=== PATIENT | male | born 1940 | race Caucasian/White ===

== ENCOUNTER 2016-12-25 08:37 | Inpatient (IN) | payer MEDICARE, BC ==
--- NOTE | 2016-12-25 08:40 | EDM.PDOC ---
ED HPI GENERAL MEDICAL PROBLEM - General Chief Complaint: Respiratory Problem Stated Complaint: WEAK Time Seen by Provider: 12/25/16 08:40 Source of Information: Reports: Patient, Family, Old Records, RN, RN Notes Reviewed - History of Present Illness INITIAL COMMENTS - FREE TEXT/NARRATIVE: Arrives from home by POV with c/o progressively worsening weakness for several with a deep moist non-productive cough for the past 3 days. Denies fever or chills, chest pain, abdominal pain, N/V/D/C, edema, or palpitations. Admits to decreased appetite, generalized weakness, and fatigue. Onset: Unknown/Unsure Duration: Week(s): (approx. 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(s) - Related Data Allergies Allergy/AdvReac Type Severity Reaction Status Date / Time No Known Allergies Allergy Verified 06/06/15 19:14 Home Meds: Home Meds Acetaminophen/oxyCODONE [Percocet 325-5 MG] 1 tab PO Q6HR PRN 06/06/15 [History] Albuterol Sulfate [Proventil Hfa] 2 puff INH Q6HR PRN 06/06/15 [History] Cimetidine [Tagamet] 400 mg PO BID PRN 06/06/15 [History] Meclizine [Antivert] 12.5 mg PO TID PRN 06/06/15 [History] Simvastatin [Zocor] 40 mg PO BEDTIME 06/06/15 [History] cloNIDine HCl [Catapres] 0.1 mg PO BID 06/06/15 [History] Carvedilol [Coreg] 25 mg PO BID #30 tablet 11/16/15 [Rx] Aspirin [Halfprin] 81 mg PO BRK 01/30/16 [History] Docusate Sodium/Sennosides [Senna Plus] 1 tab PO BEDTIME 01/30/16 [History] Isosorbide Mononitrate [Imdur] 60 mg PO DAILY 01/30/16 [History] Past Medical History HEENT History: Reports: Hard of Hearing Other HEENT History: occasional increase in [place] Cardiovascular History: Reports: Angina, CAD, High Cholesterol, Hypertension, [place] , PVD, SOB on Exertion Respiratory History: Reports: COPD, SOB Gastrointestinal History: Reports: Other (See Below) Other Gastrointestinal History: abdominal hernia Genitourinary History: Reports: BPH, Renal Disease Other Genitourinary History: chronic kidney disease, Stage III. Renal insufficiency Musculoskeletal History: Reports: Back Pain, Chronic, Other (See Below) Other Musculoskeletal History: DJD Neurological History: Reports: Other (See Below) Other Neuro History: dementia. Through review of Dr. 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 Psychiatric History: Reports: Anxiety, Dementia - Infectious Disease History Infectious Disease History: Reports: Measles - Past Surgical History HEENT Surgical History: Reports: Adenoidectomy, Cataract Surgery, Tonsillectomy Cardiovascular Surgical History: Reports: AAA Repair, Carotid Endarterectomy GI Surgical History: Reports: Appendectomy, Colonoscopy, Hernia, Abdominal Neurological Surgical History: Reports: Vertebroplasty, Other (See Below) Social & Family History - Family History Neurological: Reports: CVA Oncologic: Reports: Colon - Tobacco Use Smoking Status *Q: Former Smoker Years of Tobacco use: 57 Packs/Tins Daily: 0.5 Used Tobacco, but Quit: No Month Tobacco Last Used: may Second Hand Smoke Exposure: No - Recreational Drug Use Recreational Drug Use: No - Living Situation & Occupation Living situation: Reports: with Spouse Occupation: Retired ED ROS GENERAL - Review of Systems Review Of Systems: ROS reveals no pertinent complaints other than HPI. ED EXAM, GENERAL - Physical Exam Exam: See Below Exam Limited By: No Limitations General Appearance: Alert, WD/WN, No Apparent Distress Eye Exam: Bilateral Eye: Normal Inspection Ears: Hearing Grossly Normal Nose: Normal Inspection, Normal Mucosa, No Blood Throat/Mouth: Normal Lips, Normal Oropharynx, Normal Voice, No Airway Compromise , Other (pink moist oral membranes) Head: Atraumatic, Normocephalic Neck: Normal Inspection, Supple, Non-Tender, Full Range of Motion Respiratory/Chest: No Respiratory Distress, No Accessory Muscle Use, Decreased Breath Sounds, Crackles, Rales, Wheezing (mild scattered upper B/L lung field wheezes) Cardiovascular: Normal Peripheral Pulses, Regular Rate, Rhythm, No Edema, No Gallop, No JVD, No Murmur, No Rub GI/Abdominal: Normal Bowel Sounds, Soft, Non-Tender, No Distention, No Abnormal Bruit (Male) Exam: Deferred Rectal (Males) Exam: Deferred Back Exam: Normal Inspection, Full Range of Motion. No: CVA Tenderness (L), CVA Tenderness (R) Extremities: Normal Inspection, Normal Range of Motion, Non-Tender, Normal Capillary Refill, No Pedal Edema Neurological: Alert, Oriented, CN II-XII Intact, Normal Cognition, Normal Gait, No Motor/Sensory Deficits Psychiatric: Normal Affect, Normal Mood Skin Exam: Warm, Dry, Intact, Normal Color, No Rash EKG INTERPRETATION EKG Date: 12/25/16 Time: 09:19 Rhythm: Other (SR) Rate (Beats/Min): 60 [place]: Normal P-Wave: Present QRS: Normal (with multiform PVCs) ST-T: Normal QT: Normal Comparison: No Change (Compared to EKG 01/30/16 unchanged other than PVCs) EKG Interpretation Comments: No acute ischemic changes. Course - Vital Signs Last Recorded V/S: Last Vital Signs Temp 36.4 C 12/25/16 08:53 Pulse 63 12/25/16 09:34 Resp 16 12/25/16 08:53 BP 150/73 H 12/25/16 08:53 Pulse Ox 96 12/25/16 08:53 - Orders/Labs/Meds Orders: Active Orders 24 hr Category Date Time Status EKG 12 Lead [EKG Documentation Completion] [RC] STAT Care 12/25/16 08:57 Active Peripheral IV Care [RC] . DIRECTED Care 12/25/16 08:59 Active RT Aerosol Therapy [RC] ASDIRECTED Care 12/25/16 08:59 Active CULTURE BLOOD [BC] Stat Lab 12/25/16 09:16 Received CULTURE BLOOD [BC] Stat Lab 12/25/16 09:43 Received Piperacillin/Tazobactam [Zosyn] 3.375 gm Med 12/25/16 11:58 Active Sodium Chloride 0.9% [Normal Saline] 100 ml IV ONETIME Sodium Chloride 0.9% [Saline Flush] Med 12/25/16 08:58 Active 10 ml FLUSH ASDIRECTED PRN Blood Culture x2 Reflex Set [OM.PC] Stat Oth 12/25/16 08:58 Ordered Peripheral IV Insertion Adult [OM.PC] Stat Oth 12/25/16 08:57 Ordered Medication Orders Piperacillin Sod/Tazobactam (Sod 3.375 gm/ Sodium Chloride) 100 mls @ 200 mls/ hr IV ONETIME ONE Stop: 12/25/16 12:27 Sodium Chloride (Saline Flush) 10 ml FLUSH ASDIRECTED PRN PRN Reason: Keep Vein Open Labs: Laboratory Tests 12/25/16 12/25/16 12/25/16 Range/Units 09:02 09:16 09:16 WBC 15.1 H (5.0-10.0) 10^3/uL RBC 4.52 L (4.6-6.2) 10^6/uL Hgb 12.7 L (14.0-18.0) g/dL Hct 40.5 (40.0-54.0) % MCV 89.6 (80-100) fL MCH 28.1 (27.0-34.0) pg MCHC 31.4 L (33.0-35.0) g/dL Plt Count 123 L (150-450) 10^3/uL Neut % (Auto) 78.6 H (42.2-75.2) % Lymph % (Auto) 10.7 L (20.5-50.1) % [place] % (Auto) 9.1 H (2-8) % Eos % (Auto) 1.5 (1.0-3.0) % Baso % (Auto) 0.1 (0.0-1.0) % Sodium 140 (135-145) mmol/L Potassium 3.6 (3.6-5.0) mmol/L Chloride 111 (101-111) mmol/L Carbon Dioxide 18.0 L (21.0-31.0) mmol/L Anion Gap 14.6 BUN 26 H (7-18) mg/dL Creatinine 1.7 H (0.6-1.3) mg/dL Est Cr Clr Drug Dosing 37.57 mL/min Estimated GFR (MDRD) 39 BUN/Creatinine Ratio 15.29 Glucose 111 H (74-105) mg/dL Lactic Acid (0.5-2.2) mmol/L Calcium 9.8 (8.4-10.2) mg/dl Total Bilirubin 0.6 (0.2-1.0) mg/dL AST 14 (10-42) IU/L ALT 8 L (10-60) IU/L Alkaline Phosphatase 56 (42-121) IU/L Troponin I 0.02 (0.00-0.02) ng/ml B-Natriuretic Peptide 329 H (0-100) pg/ml Total Protein 7.7 (6.7-8.2) g/dl Albumin 4.0 (3.2-5.5) g/dl Globulin 3.7 Albumin/Globulin Ratio 1.08 TSH, Ultra Sensitive (0.35-7.0) uIu/mL Urine Color Dark yellow (YELLOW) Urine Appearance Cloudy (CLEAR) Urine pH 5.0 (5.0-9.0) Ur Specific [place] 1.025 (1.005-1.030) Urine Protein 30 H (NEGATIVE) Urine Glucose (UA) Negative (NEGATIVE) Urine Ketones Negative (NEGATIVE) Urine Occult Blood Trace-lysed H (NEGATIVE) Urine Nitrite Negative (NEGATIVE) Urine Bilirubin Negative (NEGATIVE) Urine Urobilinogen 0.2 (0.2-1.0) mg/dL Ur Leukocyte Esterase Negative (NEGATIVE) Urine RBC 10-20 H /HPF Urine WBC 0-5 (0-5/HPF) /HPF Ur Epithelial Cells Rare /HPF Amorphous Sediment Few (0/HPF) /HPF Hyaline Casts Few H /LPF Urine Mucus Few H /LPF Urine Other See note 12/25/16 12/25/16 Range/Units 09:16 09:16 WBC (5.0-10.0) 10^3/uL RBC (4.6-6.2) 10^6/uL Hgb (14.0-18.0) g/dL Hct (40.0-54.0) % MCV (80-100) fL MCH (27.0-34.0) pg MCHC (33.0-35.0) g/dL Plt Count (150-450) 10^3/uL Neut % (Auto) (42.2-75.2) % Lymph % (Auto) (20.5-50.1) % [place] % (Auto) (2-8) % Eos % (Auto) (1.0-3.0) % Baso % (Auto) (0.0-1.0) % Sodium (135-145) mmol/L Potassium (3.6-5.0) mmol/L Chloride (101-111) mmol/L Carbon Dioxide (21.0-31.0) mmol/L Anion Gap BUN (7-18) mg/dL Creatinine (0.6-1.3) mg/dL Est Cr Clr Drug Dosing mL/min Estimated GFR (MDRD) BUN/Creatinine Ratio Glucose (74-105) mg/dL Lactic Acid 1.0 (0.5-2.2) mmol/L Calcium (8.4-10.2) mg/dl Total Bilirubin (0.2-1.0) mg/dL AST (10-42) IU/L ALT (10-60) IU/L Alkaline Phosphatase (42-121) IU/L Troponin I (0.00-0.02) ng/ml B-Natriuretic Peptide (0-100) pg/ml Total Protein (6.7-8.2) g/dl Albumin (3.2-5.5) g/dl Globulin Albumin/Globulin Ratio TSH, Ultra Sensitive 1.81 (0.35-7.0) uIu/mL Urine Color (YELLOW) Urine Appearance (CLEAR) Urine pH (5.0-9.0) Ur Specific [place] (1.005-1.030) Urine Protein (NEGATIVE) Urine Glucose (UA) (NEGATIVE) Urine Ketones (NEGATIVE) Urine Occult Blood (NEGATIVE) Urine Nitrite (NEGATIVE) Urine Bilirubin (NEGATIVE) Urine Urobilinogen (0.2-1.0) mg/dL Ur Leukocyte Esterase (NEGATIVE) Urine RBC /HPF Urine WBC (0-5/HPF) /HPF Ur Epithelial Cells /HPF Amorphous Sediment (0/HPF) /HPF Hyaline Casts /LPF Urine Mucus /LPF Urine Other Meds: Medications Generic Name Dose Route Start Last Admin Trade Name Freq PRN Reason Stop Dose Admin Piperacillin Sod/Tazobactam 100 mls @ 200 mls/hr 12/25/16 11:58 Sod 3.375 gm/ Sodium Chloride IV 12/25/16 12:27 ONETIME ONE Sodium Chloride 10 ml 12/25/16 08:58 Saline Flush FLUSH ASDIRECTED PRN Keep Vein Open Discontinued Medications Generic Name Dose Route Start Last Admin Trade Name Freq PRN Reason Stop Dose Admin Albuterol/Ipratropium 3 ml 12/25/16 08:59 12/25/16 09:33 Duoneb 3.0-0.5 Mg/3 Ml NEB 12/25/16 09:00 3 ml ONETIME ONE Administration - Radiology Interpretation Free Text/Narrative:: CXR: No new abnormality since 01/30/16 CXR, abnormal charlene; see Rad. report. CT chest: RLL infiltrate, see Rad. report. - Re-Assessments/Exams Free Text/Narrative Re-Assessment/Exam: 12/25/16 11:44 Pt with progressively worsening weakness of 3+ weeks duration with new onset cough and WBC >15,000 with 57 pack year history of smoking. Departure - Departure Time of Disposition: 12:11 (admit to Dr. Hayward) Disposition: Admitted As Inpatient 65 Condition: Serious Clinical Impression: Generalized weakness Pneumonia Qualifiers: Pneumonia type: due to unspecified organism Laterality: right Lung location: lower lobe of lung Qualified Code(s): J18.1 - Lobar pneumonia, unspecified organism - Discharge Information Forms: ED Department Discharge - My Orders Last 24 Hours: My Active Orders 12/25/16 08:57 EKG 12 Lead [EKG Documentation Completion] [RC] STAT Peripheral IV Insertion Adult [OM.PC] Stat 12/25/16 08:58 Sodium Chloride 0.9% [Saline Flush] 10 ml FLUSH ASDIRECTED PRN Blood Culture x2 Reflex Set [OM.PC] Stat 12/25/16 08:59 Peripheral IV Care [RC] . DIRECTED RT Aerosol Therapy [RC] ASDIRECTED 12/25/16 09:16 CULTURE BLOOD [BC] Stat 12/25/16 09:43 CULTURE BLOOD [BC] Stat 12/25/16 11:58 Piperacillin/Tazobactam [Zosyn] 3.375 gm Sodium Chloride 0.9% [Normal Saline] 100 ml IV ONETIME - Assessment/Plan Last 24 Hours: My Active Orders 12/25/16 08:57 EKG 12 Lead [EKG Documentation Completion] [RC] STAT Peripheral IV Insertion Adult [OM.PC] Stat 12/25/16 08:58 Sodium Chloride 0.9% [Saline Flush] 10 ml FLUSH ASDIRECTED PRN Blood Culture x2 Reflex Set [OM.PC] Stat 12/25/16 08:59 Peripheral IV Care [RC] . DIRECTED RT Aerosol Therapy [RC] ASDIRECTED 12/25/16 09:16 CULTURE BLOOD [BC] Stat 12/25/16 09:43 CULTURE BLOOD [BC] Stat 12/25/16 11:58 Piperacillin/Tazobactam [Zosyn] 3.375 gm Sodium Chloride 0.9% [Normal Saline] 100 ml IV ONETIME
[2016-12-25] MEDS ORDERED: Albuterol/Ipratropium 3.0-0.5 MG/3 ML Neb Soln NEB ONE (08:59)
--- NOTE | 2016-12-25 09:27 | CR ---
Clinical history: 76-year-old male emergency department with a "cough". Interpretation: (Extreme costophrenic sulci "cut off" lower margin of the film) Normal cardiac silhouette without cephalization of flow and new signs of alveolar edema or appreciab le pleural fluid accumulation since 30 January 2016 exam this patient with sternotomy wires and med iastinal clips. Symmetric prominence of the pulmonary artery segments but no lung mass, hilar lymphadenopathy or foc al lobar pneumonia. No atelectasis/collapse. No pneumothorax. CONCLUSION: No acute new cardiopulmonary abnormality since 30 January 2016 exam. (Prominent charlene pr esumably reflecting pulmonary artery segments but differential includes underlying lymphadenopathy p articularly on the right.) Clinical?
--- NOTE | 2016-12-25 11:53 | CT ---
Clinical history: 76-year-old debilitated hypertensive male ex-smoker (quit in 2001) now with a coug h and weakness. Scan technique: Volume acquisition of data emergency unenhanced CT scan of the chest (bony thorax, l ungs and mediastinum) obtained with patient lying supine on the Siemens multi slice CT scanner [place], [place]. All data archived in the PACS system for storage, reformatting and study. Interpretation: 1. Sternotomy wires and mediastinal clips and calcifications normal caliber thoracic aorta. 2. Borderline cardiomegaly but no current cephalization of vascular flow, signs of alveolar edema or pleural effusion. Asymmetrically prominent pulmonary artery segments proximally (right greater gideon n left) 3. Old trauma (callus) and/or bony exostosis arising off the inner margin lateral left sixth rib. No sign of underlying lung contusion, atelectasis, or pleural hematoma, effusion, or pneumothorax left hemithorax. 4. Bilateral peribronchial "cuffing" and subtle pneumonic like infiltrate posterior segment right lo wer lobe. Aspiration? 5. No sign of parenchymal lung nodule or mass lesion. Shotty nodes (no significant hilar or mediasti nal lymphadenopathy). 6. Gallbladder, liver, stomach, spleen, pancreas and adrenal glands unremarkable. 7. Osteopenia and osteoarthritic changes (spurs) spine. CONCLUSION: Bronchitis and patchy right lower lobe pneumonitis (bronchiectasis?). No significant lym phadenopathy.
[2016-12-25] MEDS ORDERED: Piperacillin/Tazobactam 3.375 GM in Sodium Chloride 0.9% 100 ML IV ONE (11:58)
[2016-12-25] MEDS: Sodium Chloride 0.9% 10 ML Syringe FLUSH PRN (12:33)
[2016-12-25] MEDS ORDERED: Magnesium Hydroxide 400 MG/5 ML Susp 30 ML Cup PO PRN (13:47)
[2016-12-25] MEDS ORDERED: Ondansetron 4 MG Tab.DIS PO PRN (13:47)
[2016-12-25] MEDS ORDERED: Polyethylene Glycol 3350 Powder 17 GM Packet PO PRN (13:47)
[2016-12-25] MEDS ORDERED: Docusate Sodium 100 MG Cap PO PRN (13:47)
[2016-12-25] MEDS ORDERED: Zolpidem 5 MG Tab PO PRN (13:47)
[2016-12-25] MEDS ORDERED: Sodium Chloride 0.9% 10 ML Syringe FLUSH PRN (13:47)
[2016-12-25] MEDS ORDERED: Albuterol 6.7 GM Inhaler INH PRN (13:50)
[2016-12-25] MEDS ORDERED: Meclizine 12.5 MG Tab PO PRN (13:50)
[2016-12-25] MEDS: Azithromycin 500 MG in Sodium Chloride 0.9% 250 ML IV SCH (14:04)
[2016-12-25] MEDS: Nicotine 14 MG/24 Hr Patch TRDERM SCH (14:05)
[2016-12-25] MEDS: Aspirin 81 MG Tab.EC PO SCH (14:09)
--- NOTE | 2016-12-25 14:10 | PCM.HP ---
H&P History of Present Illness - General Date of Service: 12/25/16 Admit Problem/Dx: Admission Diagnosis/Problem Admission Diagnosis/Problem Pneumonia Source of Information: Patient, Family - History of Present Illness Initial Comments - Free Text/Narative: the patient is a 76-year-old gentleman with a history of extensive smoking, chewing tobacco. The patient has a history of COPD, coronary artery disease, CKD stage III, hypertension. The patient has had back surgeries for lumbar stenosis. He has been living with the son. He has been seen in the past few weeks to have increasing weakness, more difficulty with ambulation. In the past 34 days he has developed a cough, no associated sputum production, no shortness of breath or fever. No chest pain. The patient came into the emergency room and was noted to have leukocytosis. CT of the chest confirmed pneumonia. - Related Data Allergies/Adverse Reactions: Allergies Allergy/AdvReac Type Severity Reaction Status Date / Time No Known Allergies Allergy Verified 12/25/16 12:54 Home Medications: Home Meds Acetaminophen/oxyCODONE [Percocet 325-5 MG] 1 tab PO Q6HR PRN 06/06/15 [History] Albuterol Sulfate [Proventil Hfa] 2 puff INH Q6HR PRN 06/06/15 [History] Cimetidine [Tagamet] 400 mg PO BID 06/06/15 [History] Meclizine [Antivert] 12.5 mg PO TID PRN 06/06/15 [History] Simvastatin [Zocor] 40 mg PO BEDTIME 06/06/15 [History] cloNIDine HCl [Catapres] 0.1 mg PO BID 06/06/15 [History] Carvedilol [Coreg] 25 mg PO BID #30 tablet 11/16/15 [Rx] Aspirin [Halfprin] 81 mg PO BRK 01/30/16 [History] Docusate Sodium/Sennosides [Senna Plus] 1 tab PO BEDTIME 01/30/16 [History] Isosorbide Mononitrate [Imdur] 120 mg PO DAILY 01/30/16 [History] Acetaminophen [Tylenol] 2 tab PO QID PRN 12/25/16 [History] Dorzolamide HCl/Timolol Maleat [Cosopt Eye Drops] 1 drop EYELF BID 12/25/16 [ History] acetaZOLAMIDE [Acetazolamide] 250 mg PO BID 12/25/16 [History] amLODIPine [Norvasc] 5 mg PO DAILY 12/25/16 [History] oxyCODONE HCl [Oxycodone HCl] 10 mg PO BID 12/25/16 [History] Past Medical History HEENT History: Reports: Cataract, Glaucoma, Hard of Hearing Other HEENT History: occasional increase in [place] Cardiovascular History: Reports: Angina, CAD, High Cholesterol, Hypertension, [place] , PVD, SOB on Exertion Respiratory History: Reports: COPD, SOB Gastrointestinal History: Reports: Diverticulosis, GERD, Other (See Below) Other Gastrointestinal History: abdominal hernia Genitourinary History: Reports: BPH, Renal Disease Other Genitourinary History: chronic kidney disease, Stage III. Renal insufficiency Musculoskeletal History: Reports: Back Pain, Chronic, Other (See Below) Other Musculoskeletal History: DJD Neurological History: Reports: Other (See Below) Other Neuro History: dementia. Through review of Dr. 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 Psychiatric History: Reports: Anxiety, Dementia Other Psychiatric History: Pt is on pain contract with [facility] - Infectious Disease History Infectious Disease History: Reports: Chicken Pox, Measles - Past Surgical History HEENT Surgical History: Reports: Adenoidectomy, Cataract Surgery, Tonsillectomy Cardiovascular Surgical History: Reports: AAA Repair, Carotid Endarterectomy GI Surgical History: Reports: Appendectomy, Colonoscopy, Hernia, Abdominal Neurological Surgical History: Reports: Vertebroplasty Dermatological Surgical History: Reports: None Social & Family History - Family History Family Medical History: Noncontributory Neurological: Reports: CVA Oncologic: Reports: Colon - Tobacco Use Smoking Status *Q: Former Smoker Years of Tobacco use: 57 Packs/Tins Daily: 0.5 Used Tobacco, but Quit: Yes Month Tobacco Last Used: unknown Second Hand Smoke Exposure: No - Caffeine Use Caffeine Use: Reports: None - Recreational Drug Use Recreational Drug Use: No - Living Situation & Occupation Living situation: Reports: with Spouse Occupation: Retired H&P Review of Systems - Review of Systems: Review Of Systems: See Below General: Reports: Malaise, Weakness, Fatigue, Decreased Appetite. Denies: Fever , Chills Pulmonary: Denies: Shortness of Breath, Wheezing Cardiovascular: Denies: Chest Pain Gastrointestinal: Denies: Abdominal Pain Genitourinary: Denies: Dysuria Neurological: Denies: Confusion Exam - Exam Exam: See Below - Vital Signs Vital Signs: Last Vital Signs Temp 36.3 C 12/25/16 13:00 Pulse 62 12/25/16 13:00 Resp 16 12/25/16 08:53 BP 143/65 H 12/25/16 13:00 Pulse Ox 96 12/25/16 13:47 Weight: 73.21 kg - Exam General: Alert, Oriented Neck: Supple Lungs: Normal Respiratory Effort, Decreased Breath Sounds. No: Wheezing Cardiovascular: Regular Rate, Regular Rhythm GI/Abdominal Exam: Normal Bowel Sounds, Soft, Non-Tender, No Distention Extremities: No Pedal Edema Skin: Warm, Dry Neurological: Other (left facial droop noted, appears chronic to patient's family) Neuro Extensive - Mental Status: Alert, Oriented x3, Normal Mood/Affect, Normal Cognition Psychiatric: Alert, Normal Affect, Normal Mood - Patient Data Lab Results Last 24 hrs: CT of the chest showed a right sided lower lobe pneumonia Result Diagrams: 12/25/16 09:16 12/25/16 09:16 *Q Meaningful Use (ADM) - VTE *Q VTE Criteria *Q: - Stroke *Q Stroke Criteria *Q: - AMI *Q AMI Criteria *Q: - Problem List (1) Generalized weakness SNOMED Code(s): 12889987 ICD Code: R53.1 - WEAKNESS Status: Acute Current Visit: Yes (2) Pneumonia SNOMED Code(s): 968427448 ICD Code: J18.9 - PNEUMONIA, UNSPECIFIED ORGANISM Status: Acute Current Visit: Yes Qualifiers: Pneumonia type: due to unspecified organism Laterality: right Lung location: lower lobe of lung Qualified Code(s): J18.1 - Lobar pneumonia, unspecified organism (3) CAD (coronary artery disease) SNOMED Code(s): 40681532 ICD Code: I25.10 - ATHSCL HEART DISEASE OF [place] CORONARY ARTERY W/O ANG PCTRS Status: Acute Current Visit: Yes (4) COPD (chronic obstructive pulmonary disease) SNOMED Code(s): 79655212 ICD Code: J44.9 - CHRONIC OBSTRUCTIVE PULMONARY DISEASE, UNSPECIFIED Status : Acute Current Visit: No Qualifiers: COPD type: unspecified COPD Qualified Code(s): J44.9 - Chronic obstructive pulmonary disease, unspecified Problem List Initiated/Reviewed/Updated: Yes Orders Last 24hrs: Active Orders 24 hr Category Date Time Status Patient Status [ADT] Routine ADT 12/25/16 13:47 Ordered Oxygen Therapy [RC] PRN Care 12/25/16 13:47 Ordered Up With Assistance [RC] ASDIRECTED Care 12/25/16 13:47 Ordered VTE/DVT Education [RC] PER UNIT ROUTINE Care 12/25/16 13:47 Ordered Vital Signs [RC] Q4H Care 12/25/16 13:47 Ordered OT Evaluation and Treatment [CONS] Routine Cons 12/25/16 13:40 Ordered PT Evaluation and Treatment [CONS] Routine Cons 12/25/16 13:40 Ordered Regular Diet [DIET] Diet 12/25/16 Dinner Ordered BASIC METABOLIC PANEL,BMP [CHEM] AM Lab 12/26/16 05:15 Ordered CBC WITH AUTO DIFF [HEME] AM Lab 12/26/16 05:15 Ordered CULTURE SPUTUM + SMEAR [RM] Routine Lab 12/25/16 13:12 Uncollected Acetaminophen [Tylenol] Med 12/25/16 13:47 Ordered 650 mg PO Q4H PRN Albuterol [Proventil HFA] Med 12/25/16 13:50 Ordered 2 puff INH Q6HR PRN Aspirin [Halfprin] Med 12/25/16 14:00 Ordered 81 mg PO BRK Azithromycin [Zithromax] 500 mg Med 12/25/16 13:45 Ordered Sodium Chloride 0.9% [Normal Saline] 250 ml IV Q24H Carvedilol [Coreg] Med 12/25/16 21:00 Ordered 25 mg PO BID Docusate Sodium [Colace] Med 12/25/16 13:47 Ordered 100 mg PO BID PRN Docusate Sodium/Sennosides [Senna Plus] Med 12/25/16 21:00 Ordered 1 tab PO BEDTIME Docusate Sodium/Sennosides [Senna Plus] Med 12/25/16 13:47 Ordered 1 tab PO BEDTIME PRN Dorzolamide/Timolol [Cosopt 2%-0.5% Ophth Soln] Med 12/25/16 21:00 Ordered 1 drop EYELF BID Heparin Sodium Med 12/25/16 14:00 Ordered 5,000 units SUBCUT Q8HR Isosorbide Mononitrate [Imdur] Med 12/26/16 09:00 Ordered 120 mg PO DAILY Magnesium Hydroxide [Milk of Magnesia] Med 12/25/16 13:47 Ordered 30 ml PO Q12H PRN Meclizine [Antivert] Med 12/25/16 13:50 Ordered 12.5 mg PO TID PRN Nicotine [Habitrol] Med 12/25/16 13:45 Ordered 14 mg TRDERM DAILY Ondansetron [Zofran ODT] Med 12/25/16 13:47 Ordered 4 mg PO Q6H PRN Pantoprazole [ProTONIX] Med 12/25/16 17:00 Ordered 40 mg PO BIDAC Polyethylene Glycol 3350 [MiraLAX] Med 12/25/16 13:47 Ordered 17 gm PO DAILY PRN Simvastatin [Zocor] Med 12/25/16 21:00 Ordered 40 mg PO BEDTIME Sodium Chloride 0.9% [Saline Flush] Med 12/25/16 13:47 Ordered 10 ml FLUSH ASDIRECTED PRN Zolpidem [Ambien] Med 12/25/16 13:47 Ordered 5 mg PO BEDTIME PRN acetaZOLAMIDE [Diamox] Med 12/25/16 21:00 Ordered 250 mg PO BID amLODIPine [Norvasc] Med 12/26/16 09:00 Ordered 5 mg PO DAILY cefTRIAXone [Rocephin] 1 gm Med 12/26/16 08:00 Ordered Sodium Chloride 0.9% [Normal Saline] 50 ml IV Q24H cloNIDine [Catapres] Med 12/25/16 21:00 Ordered 0.1 mg PO BID oxyCODONE Med 12/25/16 13:47 Ordered 5 mg PO Q4H PRN oxyCODONE HCl [Oxycodone HCl] Med 12/25/16 21:00 Ordered 10 mg PO BID Saline Lock Insert [OM.PC] Routine Oth 12/25/16 13:47 Ordered Resuscitation Status Routine Resus Stat 12/25/16 13:47 Ordered Medication Orders Acetaminophen (Tylenol) 650 mg PO Q4H PRN PRN Reason: Pain (Mild 1-3)/fever Acetazolamide (Diamox) 250 mg PO BID [facility] Albuterol (Proventil Hfa) 0 gm INH Q6HR PRN PRN Reason: Shortness of Breath Amlodipine Besylate (Norvasc) 5 mg PO DAILY [facility] Aspirin (Halfprin) 81 mg PO BRK [facility] Carvedilol (Coreg) 25 mg PO BIDMEALS [facility] Clonidine HCl (Catapres) 0.1 mg PO BID [facility] Docusate Sodium (Colace) 100 mg PO BID PRN PRN Reason: Constipation Dorzolamide/Timolol (Cosopt 2%-0.5% Ophth Soln) ml EYELF BID [facility] Heparin Sodium (Porcine) (Heparin Sodium) 5,000 units SUBCUT Q8HR [facility] Azithromycin 500 mg/ Sodium (Chloride) 250 mls @ 250 mls/hr IV Q24H [facility] Ceftriaxone Sodium 1 gm/ (Sodium Chloride) 50 mls @ 100 mls/hr IV Q24H [facility] Isosorbide Mononitrate (Imdur) 120 mg PO DAILY [facility] Magnesium Hydroxide (Milk Of Magnesia) 30 ml PO Q12H PRN PRN Reason: Constipation Meclizine HCl (Antivert) 12.5 mg PO TID PRN PRN Reason: dizziness Nicotine (Habitrol) 14 mg TRDERM DAILY [facility] Non-Formulary Medication (Oxycodone Hcl [Oxycodone Hcl]) 10 mg PO BID [facility] Ondansetron HCl (Zofran Odt) 4 mg PO Q6H PRN PRN Reason: nausea, able to take PO Oxycodone HCl (Oxycodone) 5 mg PO Q4H PRN PRN Reason: Pain (moderate 4-6) Pantoprazole Sodium (Protonix) 40 mg PO BIDAC [facility] Polyethylene Glycol (Miralax) 17 gm PO DAILY PRN PRN Reason: Constipation Senna/Docusate Sodium (Senna Plus) 1 tab PO BEDTIME PRN PRN Reason: Constipation Senna/Docusate Sodium (Senna Plus) 1 tab PO BEDTIME [facility] Simvastatin (Zocor) 40 mg PO BEDTIME [facility] Sodium Chloride (Saline Flush) 10 ml FLUSH ASDIRECTED PRN PRN Reason: Keep Vein Open Last Admin: 12/25/16 12:33 Dose: 10 ml Sodium Chloride (Saline Flush) 10 ml FLUSH ASDIRECTED PRN PRN Reason: Keep Vein Open Zolpidem Tartrate (Ambien) 5 mg PO BEDTIME PRN PRN Reason: Sleep Assessment/Plan Comment:: right lower lobe pneumonia as seen on CAT scan Leukocytosis noted Will obtain blood culture Will obtain sputum culture The patient was given Zosyn in the emergency room already Will treat with azithromycin and Rocephin weakness Will get physical therapy and occupational therapy evaluation and treatment on examination and appears to have a left facial droop but this appears chronic to the patient's family Will follow-up after physical therapy and occupational therapy started if further workup for a subacute stroke is needed Hypertension Treat with Coreg, clonidine, Norvasc, imdur Follow blood pressure and adjust as needed history of coronary artery disease Treat with aspirin, Coreg, statin History of chronic kidney disease stage III Monitor creatinine Chewing tobacco Will use nicotine patch Chronic back pain Continue scheduled and as needed oxycodone DVT prophylaxis will be subcutaneous heparin
[2016-12-25] MEDS: Heparin Sodium 5,000 Units/ML Vial SUBCUT SCH ×2 (14:11→21:45)
[2016-12-25] MEDS: Pantoprazole 40 MG Tab.CR PO SCH (17:26)
[2016-12-25] MEDS: Carvedilol 25 MG Tab PO SCH (17:26)
[2016-12-25] MEDS: Simvastatin 40 MG Tab PO SCH (21:45)
[2016-12-25] MEDS: cloNIDine 0.1 MG Tab PO SCH (21:45)
[2016-12-25] MEDS: oxyCODONE ER 10 MG TAB.ER PO SCH (21:46)
[2016-12-25] MEDS: Dorzolamide/Timolol 2%-0.5% Ophth Soln 10 ML Bottle EYELF SCH (21:46)
[2016-12-25] MEDS: acetaZOLAMIDE 250 MG Tab PO SCH (22:04)
[2016-12-26] MEDS: Pantoprazole 40 MG Tab.CR PO SCH ×2 (06:13→16:43)
[2016-12-26] MEDS: Isosorbide Mononitrate 60 MG Tab.ER PO SCH (06:13)
[2016-12-26] MEDS: Heparin Sodium 5,000 Units/ML Vial SUBCUT SCH ×3 (06:13→21:13)
[2016-12-26] MEDS: Sodium Chloride 0.9% 10 ML Syringe FLUSH PRN ×3 (08:21→15:09)
[2016-12-26] MEDS: cefTRIAXone 1 GM in Sodium Chloride 0.9% 50 ML IV SCH (08:45)
[2016-12-26] MEDS: oxyCODONE ER 10 MG TAB.ER PO SCH ×2 (08:52→21:13)
[2016-12-26] MEDS: Aspirin 81 MG Tab.EC PO SCH (08:53)
[2016-12-26] MEDS ORDERED: Potassium Chloride 10 MEQ Tab.ER PO ONE (10:34)
--- NOTE | 2016-12-26 10:40 | PCM.PN ---
- General Info Date of Service: 12/26/16 Admission Dx/Problem (Free Text): Admission Diagnosis/Problem Admission Diagnosis/Problem Pneumonia Subjective Update: feeling ok occasional cough, no associated fever no cp unsteady on his feet Functional Status: Reports: Pain Controlled - Review of Systems General: Reports: Weakness. Denies: Fever Pulmonary: Denies: Shortness of Breath Cardiovascular: Denies: Chest Pain Gastrointestinal: Denies: Abdominal Pain Genitourinary: Denies: Dysuria - Patient Data Vitals - Most Recent: Last Vital Signs Temp 36.8 C 12/26/16 08:10 Pulse 93 12/26/16 08:10 Resp 20 12/26/16 08:10 BP 124/90 12/26/16 08:10 Pulse Ox 93 L 12/26/16 08:10 Weight - Most Recent: 73.21 kg I&O - Last 24 Hours: Intake & Output 12/25/16 12/26/16 12/26/16 22:59 06:59 14:59 Intake Total 299 Output Total 675 780 Balance -376 -780 Lab Results Last 24 Hours: Laboratory Results - last 24 hr 12/26/16 12/26/16 Range/Units 06:28 06:28 WBC 10.2 H (5.0-10.0) 10^3/uL RBC 4.19 L (4.6-6.2) 10^6/uL Hgb 11.8 L (14.0-18.0) g/dL Hct 37.2 L (40.0-54.0) % MCV 88.8 (80-100) fL MCH 28.2 (27.0-34.0) pg MCHC 31.7 L (33.0-35.0) g/dL Plt Count 128 L (150-450) 10^3/uL Neut % (Auto) 68.8 (42.2-75.2) % Lymph % (Auto) 16.6 L (20.5-50.1) % [place] % (Auto) 11.0 H (2-8) % Eos % (Auto) 3.3 H (1.0-3.0) % Baso % (Auto) 0.3 (0.0-1.0) % Sodium 141 (135-145) mmol/L Potassium 3.4 L (3.6-5.0) mmol/L Chloride 110 (101-111) mmol/L Carbon Dioxide 19.0 L (21.0-31.0) mmol/L Anion Gap 15.4 BUN 21 H (7-18) mg/dL Creatinine 1.5 H (0.6-1.3) mg/dL Est Cr Clr Drug Dosing 39.90 mL/min Estimated GFR (MDRD) 45 Glucose 88 (74-105) mg/dL Calcium 9.4 (8.4-10.2) mg/dl Enrique Results Last 24 Hours: Microbiology 12/26/16 07:00 Gram Stain - Final Sputum - Expectorated Med Orders - Current: Current Medications Acetaminophen (Tylenol) 650 mg PO Q4H PRN PRN Reason: Pain (Mild 1-3)/fever Acetazolamide (Diamox) 250 mg PO BID [facility] Last Admin: 12/25/16 22:04 Dose: Not Given Albuterol (Proventil Hfa) 0 gm INH Q6HR PRN PRN Reason: Shortness of Breath Amlodipine Besylate (Norvasc) 5 mg PO DAILY [facility] Aspirin (Halfprin) 81 mg PO BRK [facility] Last Admin: 12/26/16 08:53 Dose: 81 mg Carvedilol (Coreg) 25 mg PO BIDMEALS [facility] Last Admin: 12/25/16 17:26 Dose: 25 mg Docusate Sodium (Colace) 100 mg PO BID PRN PRN Reason: Constipation Dorzolamide/Timolol (Cosopt 2%-0.5% Ophth Soln) 0 ml EYELF BID [facility] Last Admin: 12/25/16 21:46 Dose: 1 drop Heparin Sodium (Porcine) (Heparin Sodium) 5,000 units SUBCUT Q8HR [facility] Last Admin: 12/26/16 06:13 Dose: 5,000 units Azithromycin 500 mg/ Sodium (Chloride) 250 mls @ 250 mls/hr IV Q24H [facility] Last Admin: 12/25/16 14:04 Dose: 250 mls/hr Ceftriaxone Sodium 1 gm/ (Sodium Chloride) 50 mls @ 100 mls/hr IV Q24H [facility] Last Admin: 12/26/16 08:45 Dose: 100 mls/hr Isosorbide Mononitrate (Imdur) 120 mg PO DAILY@0700 [facility] Last Admin: 12/26/16 06:13 Dose: 120 mg Magnesium Hydroxide (Milk Of Magnesia) 30 ml PO Q12H PRN PRN Reason: Constipation Meclizine HCl (Antivert) 12.5 mg PO TID PRN PRN Reason: dizziness Nicotine (Habitrol) 14 mg TRDERM DAILY [facility] Last Admin: 12/25/16 14:05 Dose: 14 mg Ondansetron HCl (Zofran Odt) 4 mg PO Q6H PRN PRN Reason: nausea, able to take PO Oxycodone HCl (Oxycodone) 5 mg PO Q4H PRN PRN Reason: Pain (moderate 4-6) Oxycodone HCl (Oxycontin) 10 mg PO BID [facility] Last Admin: 12/26/16 08:52 Dose: 10 mg [facility]op[facility] Last Admin: 12/26/16 06:13 Dose: 40 mg Polyethylene Glycol (Miralax) 17 gm PO DAILY PRN PRN Reason: Constipation Potassium Chloride (Klor-Con 10) 40 meq PO ONETIME ONE Stop: 12/26/16 10:35 Senna/Docusate Sodium (Senna Plus) 1 tab PO BEDTIME PRN PRN Reason: Constipation Senna/Docusate Sodium (Senna Plus) 1 tab PO BEDTIME [facility] Last Admin: 12/25/16 21:45 Dose: 1 tab Simvastatin (Zocor) 40 mg PO BEDTIME [facility] Last Admin: 12/25/16 21:45 Dose: 40 mg Sodium Chloride (Saline Flush) 10 ml FLUSH ASDIRECTED PRN PRN Reason: Keep Vein Open Last Admin: 12/26/16 08:21 Dose: 10 ml Zolpidem Tartrate (Ambien) 5 mg PO BEDTIME PRN PRN Reason: Sleep Discontinued Medications Albuterol/Ipratropium (Duoneb 3.0-0.5 Mg/3 Ml) 3 ml NEB ONETIME ONE Stop: 12/25/16 09:00 Last Admin: 12/25/16 09:33 Dose: 3 ml Clonidine HCl (Catapres) 0.1 mg PO BID [facility] Last Admin: 12/25/16 21:45 Dose: 0.1 mg Piperacillin Sod/Tazobactam (Sod 3.375 gm/ Sodium Chloride) 100 mls @ 200 mls/ hr IV ONETIME ONE Stop: 12/25/16 12:27 Last Infusion: 12/25/16 13:05 Dose: Infused Sodium Chloride (Saline Flush) 10 ml FLUSH ASDIRECTED PRN PRN Reason: Keep Vein Open - Exam General: Alert, Oriented Neck: Supple Lungs: Normal Respiratory Effort, Decreased Breath Sounds Cardiovascular: Irregular Rhythm GI/Abdominal Exam: Normal Bowel Sounds, Soft, Non-Tender Extremities: Normal Inspection, No Pedal Edema Neurological: No New Focal Deficit, Other (questionable left facial droop) Psy/Mental Status: Alert, Normal Affect, Normal Mood - Problem List & Annotations (1) Generalized weakness SNOMED Code(s): 30882389 Code(s): R53.1 - WEAKNESS Status: Acute Current Visit: Yes (2) Pneumonia SNOMED Code(s): 820653659 Code(s): J18.9 - PNEUMONIA, UNSPECIFIED ORGANISM Status: Acute Current Visit: Yes Qualifiers: Pneumonia type: due to unspecified organism Laterality: right Lung location: lower lobe of lung Qualified Code(s): J18.1 - Lobar pneumonia, unspecified organism (3) CAD (coronary artery disease) SNOMED Code(s): 64551730 Code(s): I25.10 - ATHSCL HEART DISEASE OF [place] CORONARY ARTERY W/O ANG PCTRS Status: Acute Current Visit: Yes (4) COPD (chronic obstructive pulmonary disease) SNOMED Code(s): 32343601 Code(s): J44.9 - CHRONIC OBSTRUCTIVE PULMONARY DISEASE, UNSPECIFIED Status : Acute Current Visit: No Qualifiers: COPD type: unspecified COPD Qualified Code(s): J44.9 - Chronic obstructive pulmonary disease, unspecified - Problem List Review Problem List Initiated/Reviewed/Updated: Yes - My Orders Last 24 Hours: My Active Orders 12/25/16 13:50 Albuterol [Proventil HFA] 0 gm INH Q6HR PRN Meclizine [Antivert] 12.5 mg PO TID PRN 12/25/16 14:00 Aspirin [Halfprin] 81 mg PO BRK 12/25/16 17:00 Pantoprazole [ProTONIX] 40 mg PO BIDAC 12/25/16 18:00 Carvedilol [Coreg] 25 mg PO BIDMEALS 12/25/16 21:00 Docusate Sodium/Sennosides [Senna Plus] 1 tab PO BEDTIME Dorzolamide/Timolol [Cosopt 2%-0.5% Ophth Soln] 0 ml EYELF BID Simvastatin [Zocor] 40 mg PO BEDTIME acetaZOLAMIDE [Diamox] 250 mg PO BID oxyCODONE ER [OxyCONTIN] 10 mg PO BID 12/26/16 07:00 Isosorbide Mononitrate [Imdur] 120 mg PO DAILY@0700 12/26/16 09:00 amLODIPine [Norvasc] 5 mg PO DAILY 12/26/16 10:34 Potassium Chloride [Klor-Con 10] 40 meq PO ONETIME ONE - Plan Plan:: right lower lobe pneumonia as seen on CAT scan Leukocytosis noted Will obtain blood culture Will obtain sputum culture The patient was given Zosyn in the emergency room already Will treat with azithromycin and Rocephin weakness Will get physical therapy and occupational therapy evaluation and treatment on examination and appears to have a left facial droop but this appears chronic to the patient's family Will follow-up after physical therapy and occupational therapy started if further workup for a subacute stroke is needed Hypertension BP appears on thelower side Treat with Coreg,Norvasc, imdur stop clonidine for now Follow blood pressure and adjust as needed history of coronary artery disease Treat with aspirin, Coreg, statin History of chronic kidney disease stage III Monitor creatinine Chewing tobacco Will use nicotine patch Chronic back pain Continue scheduled and as needed oxycodone follow with pt/ot DVT prophylaxis will be subcutaneous heparin
[2016-12-26] MEDS: amLODIPine 5 MG Tab PO SCH (10:48)
[2016-12-26] MEDS: Carvedilol 25 MG Tab PO SCH ×2 (10:48→18:25)
[2016-12-26] MEDS: acetaZOLAMIDE 250 MG Tab PO SCH ×2 (10:49→21:13)
[2016-12-26] MEDS: Dorzolamide/Timolol 2%-0.5% Ophth Soln 10 ML Bottle EYELF SCH ×2 (10:49→21:13)
[2016-12-26] MEDS: Nicotine 14 MG/24 Hr Patch TRDERM SCH (10:50)
[2016-12-26] MEDS: cloNIDine 0.1 MG Tab PO SCH (11:11)
[2016-12-26] MEDS: Azithromycin 500 MG in Sodium Chloride 0.9% 250 ML IV SCH (14:04)
[2016-12-26] MEDS: Simvastatin 40 MG Tab PO SCH (21:13)
[2016-12-27] MEDS: Pantoprazole 40 MG Tab.CR PO SCH ×2 (05:32→17:35)
[2016-12-27] MEDS: Heparin Sodium 5,000 Units/ML Vial SUBCUT SCH ×3 (05:32→22:32)
[2016-12-27] MEDS: Isosorbide Mononitrate 60 MG Tab.ER PO SCH (06:25)
[2016-12-27] MEDS: cefTRIAXone 1 GM in Sodium Chloride 0.9% 50 ML IV SCH (08:26)
[2016-12-27] MEDS: Sodium Chloride 0.9% 10 ML Syringe FLUSH PRN ×2 (08:26→13:50)
[2016-12-27] MEDS: Carvedilol 25 MG Tab PO SCH ×2 (08:33→17:35)
[2016-12-27] MEDS: Dorzolamide/Timolol 2%-0.5% Ophth Soln 10 ML Bottle EYELF SCH ×2 (08:34→22:33)
[2016-12-27] MEDS: Aspirin 81 MG Tab.EC PO SCH (08:34)
[2016-12-27] MEDS: Nicotine 14 MG/24 Hr Patch TRDERM SCH (08:35)
[2016-12-27] MEDS: acetaZOLAMIDE 250 MG Tab PO SCH ×2 (08:35→22:30)
[2016-12-27] MEDS: amLODIPine 5 MG Tab PO SCH (08:36)
[2016-12-27] MEDS: oxyCODONE ER 10 MG TAB.ER PO SCH ×2 (08:36→22:31)
--- NOTE | 2016-12-27 10:30 | PCM.PN ---
- General Info Date of Service: 12/27/16 Admission Dx/Problem (Free Text): Admission Diagnosis/Problem Admission Diagnosis/Problem Pneumonia Subjective Update: feeling well, has been up with pt/ot, concern for fall risk, occasional cough, no associated fever no cp - Review of Systems General: Reports: Other (unsteady). Denies: Fever, Weakness Pulmonary: Denies: Shortness of Breath Cardiovascular: Denies: Chest Pain Gastrointestinal: Denies: Abdominal Pain Genitourinary: Denies: Dysuria Neurological: Denies: Confusion - Patient Data Vitals - Most Recent: Last Vital Signs Temp 36.8 C 12/27/16 08:16 Pulse 47 L 12/27/16 08:33 Resp 20 12/27/16 08:16 BP 119/52 L 12/27/16 08:36 Pulse Ox 95 12/27/16 08:16 Weight - Most Recent: 73.21 kg I&O - Last 24 Hours: Intake & Output 12/26/16 12/27/16 12/27/16 22:59 06:59 14:59 Intake Total 253 Output Total 100 250 Balance 153 -250 Lab Results Last 24 Hours: Laboratory Results - last 24 hr 12/27/16 12/27/16 Range/Units 05:50 05:50 WBC 8.8 (5.0-10.0) 10^3/uL RBC 4.17 L (4.6-6.2) 10^6/uL Hgb 11.6 L (14.0-18.0) g/dL Hct 37.2 L (40.0-54.0) % MCV 89.2 (80-100) fL MCH 27.8 (27.0-34.0) pg MCHC 31.2 L (33.0-35.0) g/dL Plt Count 140 L (150-450) 10^3/uL Neut % (Auto) 61.7 (42.2-75.2) % Lymph % (Auto) 22.2 (20.5-50.1) % [place] % (Auto) 12.5 H (2-8) % Eos % (Auto) 3.4 H (1.0-3.0) % Baso % (Auto) 0.2 (0.0-1.0) % Sodium 142 (135-145) mmol/L Potassium 3.8 (3.6-5.0) mmol/L Chloride 111 (101-111) mmol/L Carbon Dioxide 21.0 (21.0-31.0) mmol/L Anion Gap 13.8 BUN 25 H (7-18) mg/dL Creatinine 1.6 H (0.6-1.3) mg/dL Est Cr Clr Drug Dosing 37.41 mL/min Estimated GFR (MDRD) 42 Glucose 99 (74-105) mg/dL Calcium 9.4 (8.4-10.2) mg/dl Enrique Results Last 24 Hours: Microbiology 12/26/16 07:00 Gram Stain - Final Sputum - Expectorated Sputum Culture - Preliminary Med Orders - Current: Current Medications Acetaminophen (Tylenol) 650 mg PO Q4H PRN PRN Reason: Pain (Mild 1-3)/fever Acetazolamide (Diamox) 250 mg PO BID [facility] Last Admin: 12/27/16 08:35 Dose: 250 mg Albuterol (Proventil Hfa) 0 gm INH Q6HR PRN PRN Reason: Shortness of Breath Amlodipine Besylate (Norvasc) 5 mg PO DAILY [facility] Last Admin: 12/27/16 08:36 Dose: 5 mg Aspirin (Halfprin) 81 mg PO BRK [facility] Last Admin: 12/27/16 08:34 Dose: 81 mg Carvedilol (Coreg) 25 mg PO BIDMEALS [facility] Last Admin: 12/27/16 08:33 Dose: 25 mg Docusate Sodium (Colace) 100 mg PO BID PRN PRN Reason: Constipation Dorzolamide/Timolol (Cosopt 2%-0.5% Ophth Soln) 0 ml EYELF BID [facility] Last Admin: 12/27/16 08:34 Dose: 1 drop Heparin Sodium (Porcine) (Heparin Sodium) 5,000 units SUBCUT Q8HR [facility] Last Admin: 12/27/16 05:32 Dose: 5,000 units Azithromycin 500 mg/ Sodium (Chloride) 250 mls @ 250 mls/hr IV Q24H [facility] Last Admin: 12/26/16 14:04 Dose: 250 mls/hr Ceftriaxone Sodium 1 gm/ (Sodium Chloride) 50 mls @ 100 mls/hr IV Q24H [facility] Last Admin: 12/27/16 08:26 Dose: 100 mls/hr Isosorbide Mononitrate (Imdur) 120 mg PO DAILY@0700 [facility] Last Admin: 12/27/16 06:25 Dose: 120 mg Magnesium Hydroxide (Milk Of Magnesia) 30 ml PO Q12H PRN PRN Reason: Constipation Meclizine HCl (Antivert) 12.5 mg PO TID PRN PRN Reason: dizziness Nicotine (Habitrol) 14 mg TRDERM DAILY [facility] Last Admin: 12/27/16 08:35 Dose: 14 mg Ondansetron HCl (Zofran Odt) 4 mg PO Q6H PRN PRN Reason: nausea, able to take PO Oxycodone HCl (Oxycodone) 5 mg PO Q4H PRN PRN Reason: Pain (moderate 4-6) Oxycodone HCl (Oxycontin) 10 mg PO BID [facility] Last Admin: 12/27/16 08:36 Dose: 10 mg [facility] Last Admin: 12/27/16 05:32 Dose: 40 mg Polyethylene Glycol (Miralax) 17 gm PO DAILY PRN PRN Reason: Constipation Senna/Docusate Sodium (Senna Plus) 1 tab PO BEDTIME PRN PRN Reason: Constipation Senna/Docusate Sodium (Senna Plus) 1 tab PO BEDTIME [facility] Last Admin: 12/26/16 21:13 Dose: 1 tab Simvastatin (Zocor) 40 mg PO BEDTIME [facility] Last Admin: 12/26/16 21:13 Dose: 40 mg Sodium Chloride (Saline Flush) 10 ml FLUSH ASDIRECTED PRN PRN Reason: Keep Vein Open Last Admin: 12/27/16 08:26 Dose: 10 ml Zolpidem Tartrate (Ambien) 5 mg PO BEDTIME PRN PRN Reason: Sleep Discontinued Medications Albuterol/Ipratropium (Duoneb 3.0-0.5 Mg/3 Ml) 3 ml NEB ONETIME ONE Stop: 12/25/16 09:00 Last Admin: 12/25/16 09:33 Dose: 3 ml Clonidine HCl (Catapres) 0.1 mg PO BID [facility] Last Admin: 12/26/16 11:11 Dose: Not Given Piperacillin Sod/Tazobactam (Sod 3.375 gm/ Sodium Chloride) 100 mls @ 200 mls/ hr IV ONETIME ONE Stop: 12/25/16 12:27 Last Infusion: 12/25/16 13:05 Dose: Infused Potassium Chloride (Klor-Con 10) 40 meq PO ONETIME ONE Stop: 12/26/16 10:35 Last Admin: 12/26/16 11:10 Dose: 40 meq Sodium Chloride (Saline Flush) 10 ml FLUSH ASDIRECTED PRN PRN Reason: Keep Vein Open - Exam General: Alert, Oriented Neck: Supple Lungs: Normal Respiratory Effort, Rhonchi (basilar) GI/Abdominal Exam: Normal Bowel Sounds, Soft, Non-Tender Extremities: No Pedal Edema - Problem List & Annotations (1) Generalized weakness SNOMED Code(s): 43744440 Code(s): R53.1 - WEAKNESS Status: Acute Current Visit: Yes (2) Pneumonia SNOMED Code(s): 277439564 Code(s): J18.9 - PNEUMONIA, UNSPECIFIED ORGANISM Status: Acute Current Visit: Yes Qualifiers: Pneumonia type: due to unspecified organism Laterality: right Lung location: lower lobe of lung Qualified Code(s): J18.1 - Lobar pneumonia, unspecified organism (3) CAD (coronary artery disease) SNOMED Code(s): 93873550 Code(s): I25.10 - ATHSCL HEART DISEASE OF [place] CORONARY ARTERY W/O ANG PCTRS Status: Acute Current Visit: Yes (4) COPD (chronic obstructive pulmonary disease) SNOMED Code(s): 43185501 Code(s): J44.9 - CHRONIC OBSTRUCTIVE PULMONARY DISEASE, UNSPECIFIED Status : Acute Current Visit: Yes Qualifiers: COPD type: unspecified COPD Qualified Code(s): J44.9 - Chronic obstructive pulmonary disease, unspecified - Problem List Review Problem List Initiated/Reviewed/Updated: Yes - Plan Plan:: right lower lobe pneumonia as seen on CAT scan Leukocytosis noted on admission blood culture: pending sputum culture: pending leukocyosis is resolved The patient was given Zosyn in the emergency room Will treat with azithromycin and Rocephin weakness, unsteadyness continue physical therapy and occupational therapy evaluation and treatment discussed with SW and OT - NH or swing bed is suggested Hypertension BP appeared on the lower side Treat with Coreg,Norvasc, imdur stopped clonidine BP is OK Follow blood pressure and adjust as needed history of coronary artery disease Treat with aspirin, Coreg, statin chronic kidney disease stage III Monitor creatinine Chewing tobacco Will use nicotine patch Chronic back pain Continue scheduled and as needed oxycodone follow with pt/ot DVT prophylaxis will be subcutaneous heparin
[2016-12-27] MEDS: Azithromycin 500 MG in Sodium Chloride 0.9% 250 ML IV SCH (13:50)
[2016-12-27] MEDS: Simvastatin 40 MG Tab PO SCH (22:32)
[2016-12-28] MEDS: Heparin Sodium 5,000 Units/ML Vial SUBCUT SCH ×3 (06:25→22:02)
[2016-12-28] MEDS: Pantoprazole 40 MG Tab.CR PO SCH ×2 (06:25→17:26)
[2016-12-28] MEDS: Isosorbide Mononitrate 60 MG Tab.ER PO SCH (06:25)
[2016-12-28] MEDS: Acetaminophen 325 MG Tab PO PRN (06:26)
[2016-12-28] MEDS: Sodium Chloride 0.9% 10 ML Syringe FLUSH PRN ×2 (08:02→14:13)
[2016-12-28] MEDS: cefTRIAXone 1 GM in Sodium Chloride 0.9% 50 ML IV SCH (08:03)
[2016-12-28] MEDS: Carvedilol 25 MG Tab PO SCH ×2 (08:07→17:26)
[2016-12-28] MEDS: Dorzolamide/Timolol 2%-0.5% Ophth Soln 10 ML Bottle EYELF SCH ×2 (08:07→20:40)
[2016-12-28] MEDS: Aspirin 81 MG Tab.EC PO SCH (08:07)
[2016-12-28] MEDS: Nicotine 14 MG/24 Hr Patch TRDERM SCH (08:08)
[2016-12-28] MEDS: amLODIPine 5 MG Tab PO SCH (08:08)
[2016-12-28] MEDS: acetaZOLAMIDE 250 MG Tab PO SCH ×2 (08:08→20:41)
[2016-12-28] MEDS: oxyCODONE ER 10 MG TAB.ER PO SCH ×2 (08:09→20:41)
--- NOTE | 2016-12-28 11:55 | PCM.PN ---
- General Info Date of Service: 12/28/16 Admission Dx/Problem (Free Text): Admission Diagnosis/Problem Admission Diagnosis/Problem Pneumonia Subjective Update: feeling well, has been up with pt/ot, walking better, longer distances occasional cough, no associated fever had 3 loose BM yesterday, small amount of fresh blood with the later ones no cp, - Review of Systems General: Reports: Weakness. Denies: Fever Pulmonary: Denies: Shortness of Breath Cardiovascular: Denies: Chest Pain Gastrointestinal: Denies: Abdominal Pain Neurological: Denies: Confusion - Patient Data Vitals - Most Recent: Last Vital Signs Temp 36.6 C 12/28/16 08:38 Pulse 74 12/28/16 08:38 Resp 20 12/28/16 08:38 BP 137/76 12/28/16 08:38 Pulse Ox 98 12/28/16 08:38 Weight - Most Recent: 73.21 kg I&O - Last 24 Hours: Intake & Output 12/27/16 12/28/16 12/28/16 22:59 06:59 14:59 Intake Total 251 650 407 Output Total 350 Balance 251 300 407 Enrique Results Last 24 Hours: Microbiology 12/26/16 07:00 Gram Stain - Final Sputum - Expectorated Sputum Culture - Preliminary Med Orders - Current: Current Medications Acetaminophen (Tylenol) 650 mg PO Q4H PRN PRN Reason: Pain (Mild 1-3)/fever Last Admin: 12/28/16 06:26 Dose: 650 mg Acetazolamide (Diamox) 250 mg PO BID [facility] Last Admin: 12/28/16 08:08 Dose: 250 mg Albuterol (Proventil Hfa) 0 gm INH Q6HR PRN PRN Reason: Shortness of Breath Amlodipine Besylate (Norvasc) 5 mg PO DAILY [facility] Last Admin: 12/28/16 08:08 Dose: 5 mg Aspirin (Halfprin) 81 mg PO BRK [facility] Last Admin: 12/28/16 08:07 Dose: 81 mg Carvedilol (Coreg) 25 mg PO BIDMEALS [facility] Last Admin: 12/28/16 08:07 Dose: 25 mg Docusate Sodium (Colace) 100 mg PO BID PRN PRN Reason: Constipation Dorzolamide/Timolol (Cosopt 2%-0.5% Ophth Soln) 0 ml EYELF BID [facility] Last Admin: 12/28/16 08:07 Dose: 1 drop Heparin Sodium (Porcine) (Heparin Sodium) 5,000 units SUBCUT Q8HR [facility] Last Admin: 12/28/16 06:25 Dose: 5,000 units Azithromycin 500 mg/ Sodium (Chloride) 250 mls @ 250 mls/hr IV Q24H [facility] Last Admin: 12/27/16 13:50 Dose: 250 mls/hr Ceftriaxone Sodium 1 gm/ (Sodium Chloride) 50 mls @ 100 mls/hr IV Q24H [facility] Last Admin: 12/28/16 08:03 Dose: 100 mls/hr Isosorbide Mononitrate (Imdur) 120 mg PO DAILY@0700 [facility] Last Admin: 12/28/16 06:25 Dose: 120 mg Magnesium Hydroxide (Milk Of Magnesia) 30 ml PO Q12H PRN PRN Reason: Constipation Meclizine HCl (Antivert) 12.5 mg PO TID PRN PRN Reason: dizziness Nicotine (Habitrol) 14 mg TRDERM DAILY [facility] Last Admin: 12/28/16 08:08 Dose: 14 mg Ondansetron HCl (Zofran Odt) 4 mg PO Q6H PRN PRN Reason: nausea, able to take PO Oxycodone HCl (Oxycodone) 5 mg PO Q4H PRN PRN Reason: Pain (moderate 4-6) Oxycodone HCl (Oxycontin) 10 mg PO BID [facility] Last Admin: 12/28/16 08:09 Dose: 10 mg Pantoprazole Sodium (Protonix) 40 mg PO BIDAC [facility] Last Admin: 12/28/16 06:25 Dose: 40 mg Polyethylene Glycol (Miralax) 17 gm PO DAILY PRN PRN Reason: Constipation Senna/Docusate Sodium (Senna Plus) 1 tab PO BEDTIME PRN PRN Reason: Constipation Senna/Docusate Sodium (Senna Plus) 1 tab PO BEDTIME [facility] Last Admin: 12/27/16 22:32 Dose: 1 tab Simvastatin (Zocor) 40 mg PO BEDTIME [facility] Last Admin: 12/27/16 22:32 Dose: 40 mg Sodium Chloride (Saline Flush) 10 ml FLUSH ASDIRECTED PRN PRN Reason: Keep Vein Open Last Admin: 12/28/16 08:02 Dose: 10 ml Zolpidem Tartrate (Ambien) 5 mg PO BEDTIME PRN PRN Reason: Sleep Discontinued Medications Albuterol/Ipratropium (Duoneb 3.0-0.5 Mg/3 Ml) 3 ml NEB ONETIME ONE Stop: 12/25/16 09:00 Last Admin: 12/25/16 09:33 Dose: 3 ml Clonidine HCl (Catapres) 0.1 mg PO BID [facility] Last Admin: 12/26/16 11:11 Dose: Not Given Piperacillin Sod/Tazobactam (Sod 3.375 gm/ Sodium Chloride) 100 mls @ 200 mls/ hr IV ONETIME ONE Stop: 12/25/16 12:27 Last Infusion: 12/25/16 13:05 Dose: Infused Potassium Chloride (Klor-Con 10) 40 meq PO ONETIME ONE Stop: 12/26/16 10:35 Last Admin: 12/26/16 11:10 Dose: 40 meq Sodium Chloride (Saline Flush) 10 ml FLUSH ASDIRECTED PRN PRN Reason: Keep Vein Open - Exam General: Alert, Oriented Neck: Supple Lungs: Clear to Auscultation, Normal Respiratory Effort Cardiovascular: Regular Rate, Regular Rhythm GI/Abdominal Exam: Normal Bowel Sounds Extremities: No Pedal Edema - Problem List & Annotations (1) Generalized weakness SNOMED Code(s): 59900927 Code(s): R53.1 - WEAKNESS Status: Acute Current Visit: Yes (2) Pneumonia SNOMED Code(s): 680367557 Code(s): J18.9 - PNEUMONIA, UNSPECIFIED ORGANISM Status: Acute Current Visit: Yes Qualifiers: Pneumonia type: due to unspecified organism Laterality: right Lung location: lower lobe of lung Qualified Code(s): J18.1 - Lobar pneumonia, unspecified organism (3) CAD (coronary artery disease) SNOMED Code(s): 31599432 Code(s): I25.10 - ATHSCL HEART DISEASE OF [place] CORONARY ARTERY W/O ANG PCTRS Status: Acute Current Visit: Yes (4) COPD (chronic obstructive pulmonary disease) SNOMED Code(s): 39826292 Code(s): J44.9 - CHRONIC OBSTRUCTIVE PULMONARY DISEASE, UNSPECIFIED Status : Acute Current Visit: Yes Qualifiers: COPD type: unspecified COPD Qualified Code(s): J44.9 - Chronic obstructive pulmonary disease, unspecified - Problem List Review Problem List Initiated/Reviewed/Updated: Yes - Plan Plan:: right lower lobe pneumonia as seen on CT scan Leukocytosis noted on admission blood culture: neg for now sputum culture: pending leukocyosis is resolved The patient was given Zosyn in the emergency room Will continue to treat with azithromycin and Rocephin weakness, unsteadyness continue physical therapy and occupational therapy evaluation and treatment discussed with SW and OT - NH or swing bed is suggested but seem to be doing better - might be dicharged home Hypertension BP appeared on the lower side Treat with Coreg,Norvasc, imdur stopped clonidine BP is OK Follow blood pressure and adjust as needed history of coronary artery disease Treat with aspirin, Coreg, statin chronic kidney disease stage III Monitor creatinine Chewing tobacco continue to use nicotine patch Chronic back pain Continue scheduled and as needed oxycodone follow with pt/ot diarrhea stop stool softeners small amount of fresh red blood was likely hemorrhoid will monitor DVT prophylaxis will be subcutaneous heparin
[2016-12-28] MEDS: Azithromycin 500 MG in Sodium Chloride 0.9% 250 ML IV SCH (14:13)
[2016-12-28] MEDS: Simvastatin 40 MG Tab PO SCH (20:41)
[2016-12-29] MEDS: Heparin Sodium 5,000 Units/ML Vial SUBCUT SCH ×3 (05:39→21:40)
[2016-12-29] MEDS: Pantoprazole 40 MG Tab.CR PO SCH ×2 (05:39→16:52)
[2016-12-29] MEDS: Isosorbide Mononitrate 60 MG Tab.ER PO SCH ×2 (05:40→07:42)
[2016-12-29] MEDS: oxyCODONE ER 10 MG TAB.ER PO SCH ×2 (08:52→21:36)
[2016-12-29] MEDS: Aspirin 81 MG Tab.EC PO SCH (08:52)
[2016-12-29] MEDS: cefTRIAXone 1 GM in Sodium Chloride 0.9% 50 ML IV SCH (08:52)
[2016-12-29] MEDS: Carvedilol 25 MG Tab PO SCH ×3 (08:52→17:02)
[2016-12-29] MEDS: Nicotine 14 MG/24 Hr Patch TRDERM SCH (08:53)
[2016-12-29] MEDS: amLODIPine 5 MG Tab PO SCH (08:53)
[2016-12-29] MEDS: acetaZOLAMIDE 250 MG Tab PO SCH ×2 (08:53→21:35)
[2016-12-29] MEDS: Sodium Chloride 0.9% 10 ML Syringe FLUSH PRN (08:55)
[2016-12-29] MEDS: Dorzolamide/Timolol 2%-0.5% Ophth Soln 10 ML Bottle EYELF SCH ×2 (09:00→21:41)
[2016-12-29] MEDS: Acetaminophen 325 MG Tab PO PRN (10:21)
--- NOTE | 2016-12-29 10:28 | PCM.PN ---
- General Info Date of Service: 12/29/16 Admission Dx/Problem (Free Text): Admission Diagnosis/Problem Admission Diagnosis/Problem Pneumonia Subjective Update: feeling better, has been up with pt/ot, walking better, longer distances occasional cough, no associated fever no more diarrhea, no bloody BM no cp, - Review of Systems General: Reports: Weakness. Denies: Fever Pulmonary: Denies: Shortness of Breath (Improving) Cardiovascular: Denies: Chest Pain Genitourinary: Denies: Dysuria - Patient Data Vitals - Most Recent: Last Vital Signs Temp 36.9 C 12/29/16 08:26 Pulse 70 12/29/16 08:52 Resp 20 12/29/16 08:26 BP 127/52 L 12/29/16 08:53 Pulse Ox 97 12/29/16 08:26 Weight - Most Recent: 73.21 kg I&O - Last 24 Hours: Intake & Output 12/28/16 12/29/16 12/29/16 22:59 06:59 14:59 Intake Total 691 200 50 Output Total 200 500 Balance 491 -300 50 Enrique Results Last 24 Hours: Microbiology 12/26/16 07:00 Gram Stain - Final Sputum - Expectorated Sputum Culture - Final Staphylococcus Aureus Med Orders - Current: Current Medications Acetaminophen (Tylenol) 650 mg PO Q4H PRN PRN Reason: Pain (Mild 1-3)/fever Last Admin: 12/28/16 06:26 Dose: 650 mg Acetazolamide (Diamox) 250 mg PO BID [facility] Last Admin: 12/29/16 08:53 Dose: 250 mg Albuterol (Proventil Hfa) 0 gm INH Q6HR PRN PRN Reason: Shortness of Breath Amlodipine Besylate (Norvasc) 5 mg PO DAILY [facility] Last Admin: 12/29/16 08:53 Dose: 5 mg Aspirin (Halfprin) 81 mg PO BRK [facility] Last Admin: 12/29/16 08:52 Dose: 81 mg Carvedilol (Coreg) 25 mg PO BIDMEALS [facility] Last Admin: 12/29/16 08:52 Dose: 25 mg Docusate Sodium (Colace) 100 mg PO BID PRN PRN Reason: Constipation Dorzolamide/Timolol (Cosopt 2%-0.5% Ophth Soln) 0 ml EYELF BID [facility] Last Admin: 12/29/16 09:00 Dose: 1 drop Heparin Sodium (Porcine) (Heparin Sodium) 5,000 units SUBCUT Q8HR [facility] Last Admin: 12/29/16 05:39 Dose: 5,000 units Azithromycin 500 mg/ Sodium (Chloride) 250 mls @ 250 mls/hr IV Q24H [facility] Last Admin: 12/28/16 14:13 Dose: 250 mls/hr Ceftriaxone Sodium 1 gm/ (Sodium Chloride) 50 mls @ 100 mls/hr IV Q24H [facility] Last Admin: 12/29/16 08:52 Dose: 100 mls/hr Isosorbide Mononitrate (Imdur) 120 mg PO DAILY@0700 [facility] Last Admin: 12/29/16 07:42 Dose: Not Given Magnesium Hydroxide (Milk Of Magnesia) 30 ml PO Q12H PRN PRN Reason: Constipation Meclizine HCl (Antivert) 12.5 mg PO TID PRN PRN Reason: dizziness Nicotine (Habitrol) 14 mg TRDERM DAILY [facility] Last Admin: 12/29/16 08:53 Dose: 14 mg Ondansetron HCl (Zofran Odt) 4 mg PO Q6H PRN PRN Reason: nausea, able to take PO Oxycodone HCl (Oxycodone) 5 mg PO Q4H PRN PRN Reason: Pain (moderate 4-6) Oxycodone HCl (Oxycontin) 10 mg PO BID [facility] Last Admin: 12/29/16 08:52 Dose: 10 mg [facility] Last Admin: 12/29/16 05:39 Dose: 40 mg Polyethylene Glycol (Miralax) 17 gm PO DAILY PRN PRN Reason: Constipation Senna/Docusate Sodium (Senna Plus) 1 tab PO BEDTIME PRN PRN Reason: Constipation Senna/Docusate Sodium (Senna Plus) 1 tab PO BEDTIME [facility] Last Admin: 12/28/16 20:42 Dose: Not Given Simvastatin (Zocor) 40 mg PO BEDTIME [facility] Last Admin: 12/28/16 20:41 Dose: 40 mg Sodium Chloride (Saline Flush) 10 ml FLUSH ASDIRECTED PRN PRN Reason: Keep Vein Open Last Admin: 12/29/16 08:55 Dose: 10 ml Zolpidem Tartrate (Ambien) 5 mg PO BEDTIME PRN PRN Reason: Sleep Discontinued Medications Albuterol/Ipratropium (Duoneb 3.0-0.5 Mg/3 Ml) 3 ml NEB ONETIME ONE Stop: 12/25/16 09:00 Last Admin: 12/25/16 09:33 Dose: 3 ml Clonidine HCl (Catapres) 0.1 mg PO BID [facility] Last Admin: 12/26/16 11:11 Dose: Not Given Piperacillin Sod/Tazobactam (Sod 3.375 gm/ Sodium Chloride) 100 mls @ 200 mls/ hr IV ONETIME ONE Stop: 12/25/16 12:27 Last Infusion: 12/25/16 13:05 Dose: Infused Potassium Chloride (Klor-Con 10) 40 meq PO ONETIME ONE Stop: 12/26/16 10:35 Last Admin: 12/26/16 11:10 Dose: 40 meq Sodium Chloride (Saline Flush) 10 ml FLUSH ASDIRECTED PRN PRN Reason: Keep Vein Open - Exam Quality Assessment: No: Supplemental Oxygen General: Alert, Oriented Neck: Supple Lungs: Normal Respiratory Effort, Decreased Breath Sounds Cardiovascular: Regular Rate, Regular Rhythm GI/Abdominal Exam: Normal Bowel Sounds, Soft, Non-Tender Extremities: No Pedal Edema - Problem List & Annotations (1) Generalized weakness SNOMED Code(s): 04967624 Code(s): R53.1 - WEAKNESS Status: Acute Current Visit: Yes (2) Pneumonia SNOMED Code(s): 085557586 Code(s): J18.9 - PNEUMONIA, UNSPECIFIED ORGANISM Status: Acute Current Visit: Yes Qualifiers: Pneumonia type: due to unspecified organism Laterality: right Lung location: lower lobe of lung Qualified Code(s): J18.1 - Lobar pneumonia, unspecified organism (3) CAD (coronary artery disease) SNOMED Code(s): 16852886 Code(s): I25.10 - ATHSCL HEART DISEASE OF [place] CORONARY ARTERY W/O ANG PCTRS Status: Acute Current Visit: Yes (4) COPD (chronic obstructive pulmonary disease) SNOMED Code(s): 14692361 Code(s): J44.9 - CHRONIC OBSTRUCTIVE PULMONARY DISEASE, UNSPECIFIED Status : Acute Current Visit: Yes Qualifiers: COPD type: unspecified COPD Qualified Code(s): J44.9 - Chronic obstructive pulmonary disease, unspecified - Problem List Review Problem List Initiated/Reviewed/Updated: Yes - Plan Plan:: right lower lobe pneumonia as seen on CT scan Leukocytosis noted on admission blood culture: neg for now sputum culture: staph aureus leukocyosis is resolved The patient was given Zosyn in the emergency room Will continue to treat with Rocephin, stop azithromycin weakness, unsteadyness continue physical therapy and occupational therapy evaluation and treatment discussed with SW and OT - NH or swing bed is suggested but seem to be doing better - might be dicharged home Hypertension BP appeared on the lower side Treat with Coreg,Norvasc, imdur stopped clonidine BP is OK Follow blood pressure and adjust as needed history of coronary artery disease Treat with aspirin, Coreg, statin chronic kidney disease stage III Monitor creatinine Chewing tobacco continue to use nicotine patch as he is right now I will just yesterday today and alive Chronic back pain Continue scheduled and as needed oxycodone follow with pt/ot diarrhea stop stool softeners small amount of fresh red blood was likely hemorrhoid will monitor DVT prophylaxis will be subcutaneous heparin
[2016-12-29] MEDS: Azithromycin 500 MG in Sodium Chloride 0.9% 250 ML IV SCH (14:00)
[2016-12-29] MEDS: Simvastatin 40 MG Tab PO SCH (21:37)
[2016-12-30] MEDS: Heparin Sodium 5,000 Units/ML Vial SUBCUT SCH ×4 (06:23→23:16)
[2016-12-30] MEDS: Pantoprazole 40 MG Tab.CR PO SCH ×2 (06:23→17:08)
[2016-12-30] MEDS: Isosorbide Mononitrate 60 MG Tab.ER PO SCH (07:48)
[2016-12-30] MEDS: oxyCODONE 5 MG Tab PO PRN ×3 (07:50→18:33)
[2016-12-30] MEDS: acetaZOLAMIDE 250 MG Tab PO SCH ×2 (09:01→23:07)
[2016-12-30] MEDS: Carvedilol 25 MG Tab PO SCH ×2 (09:01→18:39)
[2016-12-30] MEDS: Aspirin 81 MG Tab.EC PO SCH (09:01)
[2016-12-30] MEDS: amLODIPine 5 MG Tab PO SCH (09:02)
[2016-12-30] MEDS: oxyCODONE ER 10 MG TAB.ER PO SCH ×2 (09:02→23:08)
[2016-12-30] MEDS: Nicotine 14 MG/24 Hr Patch TRDERM SCH (09:03)
[2016-12-30] MEDS: cefTRIAXone 1 GM in Sodium Chloride 0.9% 50 ML IV SCH ×2 (09:05→10:49)
[2016-12-30] MEDS: Sodium Chloride 0.9% 10 ML Syringe FLUSH PRN (09:06)
[2016-12-30] MEDS: Dorzolamide/Timolol 2%-0.5% Ophth Soln 10 ML Bottle EYELF SCH ×2 (10:51→23:06)
[2016-12-30] MEDS ORDERED: amLODIPine 5 MG Tab PO SCH ×2 (10:56→11:08)
[2016-12-30] MEDS ORDERED: Levofloxacin 500 MG Tab PO SCH (11:00)
--- NOTE | 2016-12-30 11:06 | PCM.DCSUM1 ---
Discharge Summary - Hospital Course Free Text/Narrative:: Presented with weakness, falling right lower lobe pneumonia as seen on CT scan Leukocytosis noted on admission blood culture: neg for now sputum culture: staph aureus leukocyosis is resolved The patient was given Zosyn in the emergency room was treated with Rocephin, stop azithromycin will discharge with Levofloxacin PO weakness, unsteadiness was seen by physical therapy and occupational therapy he remained high fall rsk recommendation to pt and family was detention level of care pt and son does not want that they agreed to some home services but only limited will give walker for better ambulation safety then with his current 3 wheeled walker Hypertension BP appeared on the lower side initially was holding clonidine Treat with Coreg,Norvasc, imdur bp improved - resumed clonidine Follow blood pressure and adjust as needed history of coronary artery disease Treat with aspirin, Coreg, statin chronic kidney disease stage III Monitor creatinine periodically Chewing tobacco continue to use nicotine patch Chronic back pain Continue scheduled and as needed oxycodone follow with pt/ot - Discharge Data Discharge Date: 12/30/16 Discharge Disposition: Home, W Home Health Agency 06 Condition: Good - Discharge Diagnosis/Problem(s) (1) Generalized weakness SNOMED Code(s): 22194812 ICD Code: R53.1 - WEAKNESS Status: Acute Current Visit: Yes (2) Pneumonia SNOMED Code(s): 848041310 ICD Code: J18.9 - PNEUMONIA, UNSPECIFIED ORGANISM Status: Acute Current Visit: Yes Qualifiers: Pneumonia type: due to unspecified organism Laterality: right Lung location: lower lobe of lung Qualified Code(s): J18.1 - Lobar pneumonia, unspecified organism (3) CAD (coronary artery disease) SNOMED Code(s): 49342837 ICD Code: I25.10 - ATHSCL HEART DISEASE OF [place] CORONARY ARTERY W/O ANG PCTRS Status: Acute Current Visit: Yes (4) COPD (chronic obstructive pulmonary disease) SNOMED Code(s): 62280807 ICD Code: J44.9 - CHRONIC OBSTRUCTIVE PULMONARY DISEASE, UNSPECIFIED Status : Acute Current Visit: Yes Qualifiers: COPD type: unspecified COPD Qualified Code(s): J44.9 - Chronic obstructive pulmonary disease, unspecified - Patient Instructions Diet: Heart Healthy Diet Activity: As Tolerated - Discharge Plan Prescriptions/Med Rec: Levofloxacin [Levaquin] 500 mg PO Q24H #7 tablet Nicotine [Habitrol] 14 mg TRDERM DAILY #10 patch Home Medications: Home Meds Acetaminophen/oxyCODONE [Percocet 325-5 MG] 1 tab PO Q6HR PRN 06/06/15 [History] Albuterol Sulfate [Proventil Hfa] 2 puff INH Q6HR PRN 06/06/15 [History] Cimetidine [Tagamet] 400 mg PO BID 06/06/15 [History] Meclizine [Antivert] 12.5 mg PO TID PRN 06/06/15 [History] Simvastatin [Zocor] 40 mg PO BEDTIME 06/06/15 [History] cloNIDine HCl [Catapres] 0.1 mg PO BID 06/06/15 [History] Carvedilol [Coreg] 25 mg PO BID #30 tablet 11/16/15 [Rx] Aspirin [Halfprin] 81 mg PO BRK 01/30/16 [History] Docusate Sodium/Sennosides [Senna Plus] 1 tab PO BEDTIME 01/30/16 [History] Isosorbide Mononitrate [Imdur] 120 mg PO DAILY 01/30/16 [History] Acetaminophen [Tylenol] 2 tab PO QID PRN 12/25/16 [History] Dorzolamide HCl/Timolol Maleat [Cosopt Eye Drops] 1 drop EYELF BID 12/25/16 [ History] acetaZOLAMIDE [Acetazolamide] 250 mg PO BID 12/25/16 [History] amLODIPine [Norvasc] 5 mg PO DAILY 12/25/16 [History] oxyCODONE ER [OxyCONTIN] 10 mg PO Q12HR 12/25/16 [History] Levofloxacin [Levaquin] 500 mg PO Q24H #7 tablet 12/30/16 [Rx] Nicotine [Habitrol] 14 mg TRDERM DAILY #10 patch 12/30/16 [Rx] Patient Handouts: Chronic Obstructive Pulmonary Disease Exacerbation, Easy-to- Read, Fall Prevention in the Home, [id number], How to Use a Walker, Community- Acquired Pneumonia, Adult, [id number] Referrals: Amanda Nguyen PA [Primary Care Provider] - (in 2-3 days) - Discharge Summary/Plan Comment DC Time >30 min.: Yes (discussion with ot, sw, pt and son about discharge suggestions and plan) - General Info Date of Service: 12/30/16 Admission Dx/Problem (Free Text: Admission Diagnosis/Problem Admission Diagnosis/Problem Pneumonia Subjective Update: feeling well, walking better, longer distances occasional cough, no associated fever no more diarrhea, no bloody BM no cp, Functional Status: Reports: Tolerating Diet - Review of Systems General: Denies: Fever Pulmonary: Denies: Shortness of Breath Cardiovascular: Denies: Chest Pain Gastrointestinal: Denies: Abdominal Pain - Patient Data Vitals - Most Recent: Last Vital Signs Temp 36.7 C 12/30/16 07:00 Pulse 87 12/30/16 09:01 Resp 20 12/30/16 07:00 BP 159/90 H 12/30/16 09:01 Pulse Ox 96 12/30/16 07:00 Weight - Most Recent: 73.21 kg I&O - Last 24 hours: Intake & Output 12/29/16 12/30/16 12/30/16 22:59 06:59 14:59 Intake Total 352 200 Balance 352 200 CHUNG Results - Last 24 hrs: Microbiology 12/26/16 07:00 Gram Stain - Final Sputum - Expectorated Sputum Culture - Final Staphylococcus Aureus Med Orders - Current: Current Medications Acetaminophen (Tylenol) 650 mg PO Q4H PRN PRN Reason: Pain (Mild 1-3)/fever Last Admin: 12/29/16 10:21 Dose: 650 mg Acetazolamide (Diamox) 250 mg PO BID [facility] Last Admin: 12/30/16 09:01 Dose: 250 mg Albuterol (Proventil Hfa) 0 gm INH Q6HR PRN PRN Reason: Shortness of Breath Amlodipine Besylate (Norvasc) 10 mg PO DAILY [facility] Aspirin (Halfprin) 81 mg PO BRK [facility] Last Admin: 12/30/16 09:01 Dose: 81 mg Carvedilol (Coreg) 25 mg PO BIDMEALS [facility] Last Admin: 12/30/16 09:01 Dose: 25 mg Docusate Sodium (Colace) 100 mg PO BID PRN PRN Reason: Constipation Dorzolamide/Timolol (Cosopt 2%-0.5% Ophth Soln) 0 ml EYELF BID [facility] Last Admin: 12/30/16 10:51 Dose: 1 drop Heparin Sodium (Porcine) (Heparin Sodium) 5,000 units SUBCUT Q8HR [facility] Last Admin: 12/30/16 06:23 Dose: 5,000 units Isosorbide Mononitrate (Imdur) 120 mg PO DAILY@0700 [facility] Last Admin: 12/30/16 07:48 Dose: 120 mg Levofloxacin (Levaquin) 500 mg PO Q24H [facility] Magnesium Hydroxide (Milk Of Magnesia) 30 ml PO Q12H PRN PRN Reason: Constipation Meclizine HCl (Antivert) 12.5 mg PO TID PRN PRN Reason: dizziness Nicotine (Habitrol) 14 mg TRDERM DAILY [facility] Last Admin: 12/30/16 09:03 Dose: 14 mg Ondansetron HCl (Zofran Odt) 4 mg PO Q6H PRN PRN Reason: nausea, able to take PO Oxycodone HCl (Oxycodone) 5 mg PO Q4H PRN PRN Reason: Pain (moderate 4-6) Last Admin: 12/30/16 07:50 Dose: 5 mg Oxycodone HCl (Oxycontin) 10 mg PO BID [facility] Last Admin: 12/30/16 09:02 Dose: 10 mg Pantoprazole Sodium (Protonix) 40 mg PO BIDAC [facility] Last Admin: 12/30/16 06:23 Dose: 40 mg Polyethylene Glycol (Miralax) 17 gm PO DAILY PRN PRN Reason: Constipation Senna/Docusate Sodium (Senna Plus) 1 tab PO BEDTIME PRN PRN Reason: Constipation Senna/Docusate Sodium (Senna Plus) 1 tab PO BEDTIME [facility] Last Admin: 12/29/16 21:35 Dose: 1 tab Simvastatin (Zocor) 20 mg PO BEDTIME [facility] Sodium Chloride (Saline Flush) 10 ml FLUSH ASDIRECTED PRN PRN Reason: Keep Vein Open Last Admin: 12/30/16 09:06 Dose: 10 ml Zolpidem Tartrate (Ambien) 5 mg PO BEDTIME PRN PRN Reason: Sleep Discontinued Medications Albuterol/Ipratropium (Duoneb 3.0-0.5 Mg/3 Ml) 3 ml NEB ONETIME ONE Stop: 12/25/16 09:00 Last Admin: 12/25/16 09:33 Dose: 3 ml Amlodipine Besylate (Norvasc) 5 mg PO DAILY [facility] Last Admin: 12/30/16 09:02 Dose: 5 mg Clonidine HCl (Catapres) 0.1 mg PO BID [facility] Last Admin: 12/26/16 11:11 Dose: Not Given Piperacillin Sod/Tazobactam (Sod 3.375 gm/ Sodium Chloride) 100 mls @ 200 mls/ hr IV ONETIME ONE Stop: 12/25/16 12:27 Last Infusion: 12/25/16 13:05 Dose: Infused Azithromycin 500 mg/ Sodium (Chloride) 250 mls @ 250 mls/hr IV Q24H [facility] Last Admin: 12/29/16 14:00 Dose: 250 mls/hr Ceftriaxone Sodium 1 gm/ (Sodium Chloride) 50 mls @ 100 mls/hr IV Q24H [facility] Last Admin: 12/30/16 10:49 Dose: Not Given Potassium Chloride (Klor-Con 10) 40 meq PO ONETIME ONE Stop: 12/26/16 10:35 Last Admin: 12/26/16 11:10 Dose: 40 meq Simvastatin (Zocor) 40 mg PO BEDTIME [facility] Last Admin: 12/29/16 21:37 Dose: 40 mg Sodium Chloride (Saline Flush) 10 ml FLUSH ASDIRECTED PRN PRN Reason: Keep Vein Open - Exam General: Reports: Alert, Oriented Neck: Reports: Supple Lungs: Reports: Clear to Auscultation, Normal Respiratory Effort Cardiovascular: Reports: Regular Rate, Regular Rhythm GI/Abdominal Exam: Normal Bowel Sounds, Soft, Non-Tender Extremities: No Pedal Edema *Q Meaningful Use (DIS) - VTE *Q VTE Criteria *Q: - Stroke *Q Stroke Criteria *Q: - AMI *Q AMI Criteria *Q:
[2016-12-30] MEDS ORDERED: Simvastatin 40 MG Tab PO SCH (11:08)
--- NOTE | 2016-12-30 19:12 | PCM.PN ---
- General Info Date of Service: 12/30/16 Admission Dx/Problem (Free Text): Admission Diagnosis/Problem Admission Diagnosis/Problem Pneumonia Subjective Update: all day was feeling well, walking better, late afternoon while in bed developed sharp pain on the top of the foot worse with touch, no associated swelling, no redness occasional cough, no associated fever no more diarrhea, no bloody BM no cp, Functional Status: Denies: Pain Controlled (c/o painin the left foot) - Review of Systems General: Denies: Fever Pulmonary: Denies: Shortness of Breath Cardiovascular: Denies: Chest Pain Gastrointestinal: Denies: Abdominal Pain Genitourinary: Denies: Dysuria Neurological: Denies: Confusion - Patient Data Vitals - Most Recent: Last Vital Signs Temp 37.1 C 12/30/16 16:59 Pulse 58 L 12/30/16 18:39 Resp 20 12/30/16 16:59 BP 122/51 L 12/30/16 18:39 Pulse Ox 99 12/30/16 16:59 Weight - Most Recent: 73.21 kg I&O - Last 24 Hours: Intake & Output 12/30/16 12/30/16 12/30/16 06:59 14:59 22:59 Intake Total 200 700 Balance 200 700 Med Orders - Current: Current Medications Acetaminophen (Tylenol) 650 mg PO Q4H PRN PRN Reason: Pain (Mild 1-3)/fever Last Admin: 12/29/16 10:21 Dose: 650 mg Acetazolamide (Diamox) 250 mg PO BID [facility] Last Admin: 12/30/16 09:01 Dose: 250 mg Albuterol (Proventil Hfa) 0 gm INH Q6HR PRN PRN Reason: Shortness of Breath Amlodipine Besylate (Norvasc) 5 mg PO DAILY [facility] Aspirin (Halfprin) 81 mg PO BRK [facility] Last Admin: 12/30/16 09:01 Dose: 81 mg Carvedilol (Coreg) 25 mg PO BIDMEALS [facility] Last Admin: 12/30/16 18:39 Dose: Not Given Clonidine HCl (Catapres) 0.1 mg PO Q12HR [facility] Docusate Sodium (Colace) 100 mg PO BID PRN PRN Reason: Constipation Dorzolamide/Timolol (Cosopt 2%-0.5% Ophth Soln) 0 ml EYELF BID [facility] Last Admin: 12/30/16 10:51 Dose: 1 drop Heparin Sodium (Porcine) (Heparin Sodium) 5,000 units SUBCUT Q8HR [facility] Last Admin: 12/30/16 14:37 Dose: Not Given Isosorbide Mononitrate (Imdur) 120 mg PO DAILY@0700 [facility] Last Admin: 12/30/16 07:48 Dose: 120 mg Levofloxacin (Levaquin) 500 mg PO Q24H [facility] Last Admin: 12/30/16 14:18 Dose: 500 mg Magnesium Hydroxide (Milk Of Magnesia) 30 ml PO Q12H PRN PRN Reason: Constipation Meclizine HCl (Antivert) 12.5 mg PO TID PRN PRN Reason: dizziness Nicotine (Habitrol) 14 mg TRDERM DAILY [facility] Last Admin: 12/30/16 09:03 Dose: 14 mg Ondansetron HCl (Zofran Odt) 4 mg PO Q6H PRN PRN Reason: nausea, able to take PO Oxycodone HCl (Oxycodone) 5 mg PO Q4H PRN PRN Reason: Pain (moderate 4-6) Last Admin: 12/30/16 18:33 Dose: 5 mg Oxycodone HCl (Oxycontin) 10 mg PO BID [facility] Last Admin: 12/30/16 09:02 Dose: 10 mg Pantoprazole Sodium (Protonix) [facility] Last Admin: 12/30/16 17:08 Dose: 40 mg Polyethylene Glycol (Miralax) 17 gm PO DAILY PRN PRN Reason: Constipation Senna/Docusate Sodium (Senna Plus) 1 tab PO BEDTIME PRN PRN Reason: Constipation Senna/Docusate Sodium (Senna Plus) 1 tab PO BEDTIME [facility] Last Admin: 12/29/16 21:35 Dose: 1 tab Simvastatin (Zocor) 40 mg PO BEDTIME [facility] Sodium Chloride (Saline Flush) 10 ml FLUSH ASDIRECTED PRN PRN Reason: Keep Vein Open Last Admin: 12/30/16 09:06 Dose: 10 ml Zolpidem Tartrate (Ambien) 5 mg PO BEDTIME PRN PRN Reason: Sleep Discontinued Medications Albuterol/Ipratropium (Duoneb 3.0-0.5 Mg/3 Ml) 3 ml NEB ONETIME ONE Stop: 12/25/16 09:00 Last Admin: 12/25/16 09:33 Dose: 3 ml Amlodipine Besylate (Norvasc) 5 mg PO DAILY [facility] [place] Last Admin: 12/30/16 09:02 Dose: 5 mg Amlodipine Besylate (Norvasc) 10 mg PO DAILY [facility] Clonidine HCl (Catapres) 0.1 mg PO BID [facility] Last Admin: 12/26/16 11:11 Dose: Not Given Piperacillin Sod/Tazobactam (Sod 3.375 gm/ Sodium Chloride) 100 mls @ 200 mls/ hr IV ONETIME ONE Stop: 12/25/16 12:27 Last Infusion: 12/25/16 13:05 Dose: Infused Azithromycin 500 mg/ Sodium (Chloride) 250 mls @ 250 mls/hr IV Q24H [facility] Last Admin: 12/29/16 14:00 Dose: 250 mls/hr Ceftriaxone Sodium 1 gm/ (Sodium Chloride) 50 mls @ 100 mls/hr IV Q24H [facility] Last Admin: 12/30/16 10:49 Dose: Not Given Potassium Chloride (Klor-Con 10) 40 meq PO ONETIME ONE Stop: 12/26/16 10:35 Last Admin: 12/26/16 11:10 Dose: 40 meq Simvastatin (Zocor) 40 mg PO BEDTIME [facility] Last Admin: 12/29/16 21:37 Dose: 40 mg Simvastatin (Zocor) 20 mg PO BEDTIME [facility] Sodium Chloride (Saline Flush) 10 ml FLUSH ASDIRECTED PRN PRN Reason: Keep Vein Open - Exam General: Alert, Oriented Neck: Supple Lungs: Clear to Auscultation, Normal Respiratory Effort Extremities: Normal Inspection, No Pedal Edema, Other (no redness, no swelling of the left foot) Skin: Warm Neurological: No New Focal Deficit Psy/Mental Status: Alert, Normal Affect, Normal Mood - Problem List & Annotations (1) Generalized weakness SNOMED Code(s): 82760826 Code(s): R53.1 - WEAKNESS Status: Acute Current Visit: Yes (2) Pneumonia SNOMED Code(s): 068785732 Code(s): J18.9 - PNEUMONIA, UNSPECIFIED ORGANISM Status: Acute Current Visit: Yes Qualifiers: Pneumonia type: due to unspecified organism Laterality: right Lung location: lower lobe of lung Qualified Code(s): J18.1 - Lobar pneumonia, unspecified organism (3) CAD (coronary artery disease) SNOMED Code(s): 88483364 Code(s): I25.10 - ATHSCL HEART DISEASE OF [place] CORONARY ARTERY W/O ANG PCTRS Status: Acute Current Visit: Yes (4) COPD (chronic obstructive pulmonary disease) SNOMED Code(s): 26268287 Code(s): J44.9 - CHRONIC OBSTRUCTIVE PULMONARY DISEASE, UNSPECIFIED Status : Acute Current Visit: Yes Qualifiers: COPD type: unspecified COPD Qualified Code(s): J44.9 - Chronic obstructive pulmonary disease, unspecified - Problem List Review Problem List Initiated/Reviewed/Updated: Yes - My Orders Last 24 Hours: My Active Orders 12/30/16 11:00 Levofloxacin [Levaquin] 500 mg PO Q24H 12/30/16 11:01 Ready for Discharge [RC] PER UNIT ROUTINE 12/30/16 11:08 Simvastatin [Zocor] 40 mg PO BEDTIME amLODIPine [Norvasc] 5 mg PO DAILY 12/30/16 19:06 Foot 2V Lt [CR] Routine 12/30/16 21:00 cloNIDine [Catapres] 0.1 mg PO Q12HR - Plan Plan:: right lower lobe pneumonia as seen on CT scan Leukocytosis noted on admission blood culture: neg for now sputum culture: staph aureus leukocyosis is resolved The patient was given Zosyn in the emergency room was treated with Rocephin, azithromycin switch to PO levofloxacin weakness, unsteadyness continue physical therapy and occupational therapy evaluation and treatment discussed with SW and OT - NH or swing bed is suggested but pt and family wanted to go hme instead will change to a different walker to decrease fall risk left foot pain no apparent rauma will get Xray Hypertension BP appeared on the lower side - now increased Treat with Coreg,Norvasc, imdur resume clonidine Follow blood pressure and adjust as needed history of coronary artery disease Treat with aspirin, Coreg, statin chronic kidney disease stage III Monitor creatinine periodically Chewing tobacco continue to use nicotine patch Chronic back pain Continue scheduled and as needed oxycodone follow with pt/ot diarrhea resolved DVT prophylaxis will be subcutaneous heparin d/w son, ot, sw
[2016-12-30] MEDS ORDERED: Simvastatin 10 MG Tab PO SCH (21:00)
[2016-12-30] MEDS: cloNIDine 0.1 MG Tab PO SCH (23:08)
[2016-12-31] MEDS: Heparin Sodium 5,000 Units/ML Vial SUBCUT SCH (06:37)
[2016-12-31 07:31] VITALS: BP 143/60
[2016-12-31] MEDS: Pantoprazole 40 MG Tab.CR PO SCH (07:51)
[2016-12-31] MEDS: Isosorbide Mononitrate 60 MG Tab.ER PO SCH (07:51)
[2016-12-31] MEDS: cloNIDine 0.1 MG Tab PO SCH (08:42)
[2016-12-31] MEDS: Aspirin 81 MG Tab.EC PO SCH (08:42)
[2016-12-31] MEDS: oxyCODONE ER 10 MG TAB.ER PO SCH (08:43)
[2016-12-31] MEDS: acetaZOLAMIDE 250 MG Tab PO SCH (08:43)
[2016-12-31] MEDS: Carvedilol 25 MG Tab PO SCH (08:43)
[2016-12-31] MEDS: Dorzolamide/Timolol 2%-0.5% Ophth Soln 10 ML Bottle EYELF SCH (08:44)
[2016-12-31] MEDS: Nicotine 14 MG/24 Hr Patch TRDERM SCH (08:44)
--- NOTE | 2016-12-31 09:22 | EKG ---
12/25/2016- KHANH MARIA - EKG per my reading shows sinus rhythm with frequent PVCs. [facility] /[id number]
--- NOTE | 2016-12-31 09:52 | PCM.DCSUM1 ---
Discharge Summary - Hospital Course Free Text/Narrative:: Presented with weakness, falling right lower lobe pneumonia as seen on CT scan Leukocytosis noted on admission blood culture: neg for now sputum culture: staph aureus leukocyosis is resolved The patient was given Zosyn in the emergency room was treated with Rocephin, stop azithromycin switched to Levofloxacin PO weakness, unsteadiness was seen by physical therapy and occupational therapy he remained high fall rsk recommendation to pt and family was fdc level of care pt and son did not want that plan was home with family and home services will give walker for better ambulation safety then with his current 3 wheeled walker Hypertension BP appeared on the lower side initially was holding clonidine Treat with Coreg,Norvasc, imdur bp improved - resumed clonidine Follow blood pressure and adjust as needed history of coronary artery disease Treat with aspirin, Coreg, statin chronic kidney disease stage III Monitor creatinine periodically Chewing tobacco continue to use nicotine patch Chronic back pain Continue scheduled and as needed oxycodone follow with pt/ot on 12/30 developed left foot pain worse with touch, weight bearing, no associated redness, xray showed no acute change, no fracture, it showed arthritis will transfer to [facility] for further treatment for pneumonia, weakness, pt, ot, possible ortho evaluation of the foot - Discharge Data Discharge Date: 12/31/16 Discharge Disposition: DC/Tfer to Acute Hospital 02 Condition: Good - Discharge Diagnosis/Problem(s) (1) Generalized weakness SNOMED Code(s): 94536302 ICD Code: R53.1 - WEAKNESS Status: Acute Current Visit: Yes (2) Pneumonia SNOMED Code(s): 395122424 ICD Code: J18.9 - PNEUMONIA, UNSPECIFIED ORGANISM Status: Acute Current Visit: Yes Qualifiers: Pneumonia type: due to unspecified organism Laterality: right Lung location: lower lobe of lung Qualified Code(s): J18.1 - Lobar pneumonia, unspecified organism (3) CAD (coronary artery disease) SNOMED Code(s): 07306416 ICD Code: I25.10 - ATHSCL HEART DISEASE OF [place] CORONARY ARTERY W/O ANG PCTRS Status: Acute Current Visit: Yes (4) COPD (chronic obstructive pulmonary disease) SNOMED Code(s): 66653530 ICD Code: J44.9 - CHRONIC OBSTRUCTIVE PULMONARY DISEASE, UNSPECIFIED Status : Acute Current Visit: Yes Qualifiers: COPD type: unspecified COPD Qualified Code(s): J44.9 - Chronic obstructive pulmonary disease, unspecified - Patient Instructions Diet: Heart Healthy Diet Activity: As Tolerated - Discharge Plan Prescriptions/Med Rec: Levofloxacin [Levaquin] 500 mg PO Q24H #7 tablet Nicotine [Habitrol] 14 mg TRDERM DAILY #10 patch Home Medications: Home Meds Acetaminophen/oxyCODONE [Percocet 325-5 MG] 1 tab PO Q6HR PRN 06/06/15 [History] Albuterol Sulfate [Proventil Hfa] 2 puff INH Q6HR PRN 06/06/15 [History] Cimetidine [Tagamet] 400 mg PO BID 06/06/15 [History] Meclizine [Antivert] 12.5 mg PO TID PRN 06/06/15 [History] Simvastatin [Zocor] 40 mg PO BEDTIME 06/06/15 [History] cloNIDine HCl [Catapres] 0.1 mg PO BID 06/06/15 [History] Carvedilol [Coreg] 25 mg PO BID #30 tablet 11/16/15 [Rx] Aspirin [Halfprin] 81 mg PO BRK 01/30/16 [History] Docusate Sodium/Sennosides [Senna Plus] 1 tab PO BEDTIME 01/30/16 [History] Isosorbide Mononitrate [Imdur] 120 mg PO DAILY 01/30/16 [History] Acetaminophen [Tylenol] 2 tab PO QID PRN 12/25/16 [History] Dorzolamide HCl/Timolol Maleat [Cosopt Eye Drops] 1 drop EYELF BID 12/25/16 [ History] acetaZOLAMIDE [Acetazolamide] 250 mg PO BID 12/25/16 [History] amLODIPine [Norvasc] 5 mg PO DAILY 12/25/16 [History] oxyCODONE ER [OxyCONTIN] 10 mg PO Q12HR 12/25/16 [History] Levofloxacin [Levaquin] 500 mg PO Q24H #7 tablet 12/30/16 [Rx] Nicotine [Habitrol] 14 mg TRDERM DAILY #10 patch 12/30/16 [Rx] Patient Handouts: Chronic Obstructive Pulmonary Disease Exacerbation, Easy-to- Read, Fall Prevention in the Home, [id number], How to Use a Walker, Levofloxacin tablets, Nicotine skin patches, Community-Acquired Pneumonia, Adult , [id number] - Discharge Summary/Plan Comment DC Time >30 min.: Yes (d/w family, called [facility] for tx., d/w dr. James) - General Info Date of Service: 12/31/16 Admission Dx/Problem (Free Text: Admission Diagnosis/Problem Admission Diagnosis/Problem Pneumonia Subjective Update: minimal cough, no sob, no cp continues to have sharp pain on the top of the foot worse with touch, no associated swelling, no redness occasional cough, no associated fever no more diarrhea, no bloody BM no cp, Functional Status: Denies: Pain Controlled - Review of Systems General: Reports: Weakness. Denies: Fever Pulmonary: Denies: Shortness of Breath Cardiovascular: Denies: Chest Pain Gastrointestinal: Denies: Abdominal Pain Musculoskeletal: Reports: Foot Pain (left) - Patient Data Vitals - Most Recent: Last Vital Signs Temp 36.0 C 12/31/16 07:00 Pulse 54 L 12/31/16 08:43 Resp 20 12/31/16 07:00 BP 143/60 H 12/31/16 08:44 Pulse Ox 98 12/31/16 07:00 Weight - Most Recent: 73.21 kg Med Orders - Current: Current Medications Acetaminophen (Tylenol) 650 mg PO Q4H PRN PRN Reason: Pain (Mild 1-3)/fever Last Admin: 12/29/16 10:21 Dose: 650 mg Acetazolamide (Diamox) 250 mg PO BID [facility] Last Admin: 12/31/16 08:43 Dose: 250 mg Albuterol (Proventil Hfa) 0 gm INH Q6HR PRN PRN Reason: Shortness of Breath Amlodipine Besylate (Norvasc) 5 mg PO DAILY [facility] Last Admin: 12/31/16 08:44 Dose: 5 mg Aspirin (Halfprin) 81 mg PO BRK [facility] Last Admin: 12/31/16 08:42 Dose: 81 mg Carvedilol (Coreg) 25 mg PO BIDMEALS [facility] Last Admin: 12/31/16 08:43 Dose: 25 mg Clonidine HCl (Catapres) 0.1 mg PO Q12HR [facility] Last Admin: 12/31/16 08:42 Dose: 0.1 mg Docusate Sodium (Colace) 100 mg PO BID PRN PRN Reason: Constipation Dorzolamide/Timolol (Cosopt 2%-0.5% Ophth Soln) 0 ml EYELF BID [facility] Last Admin: 12/31/16 08:44 Dose: 1 drop Heparin Sodium (Porcine) (Heparin Sodium) 5,000 units SUBCUT Q8HR [facility] Last Admin: 12/31/16 06:37 Dose: Not Given Isosorbide Mononitrate (Imdur) 120 mg PO DAILY@0700 [facility] Last Admin: 12/31/16 07:51 Dose: 120 mg Levofloxacin (Levaquin) 500 mg PO Q24H [facility] Last Admin: 12/30/16 14:18 Dose: 500 mg Magnesium Hydroxide (Milk Of Magnesia) 30 ml PO Q12H PRN PRN Reason: Constipation Meclizine HCl (Antivert) 12.5 mg PO TID PRN PRN Reason: dizziness Miscellaneous Information (Remove Patch) 1 ea TRDERM DAILY [facility] Nicotine (Habitrol) 14 mg TRDERM DAILY [facility] Last Admin: 12/31/16 08:44 Dose: 14 mg Ondansetron HCl (Zofran Odt) 4 mg PO Q6H PRN PRN Reason: nausea, able to take PO Oxycodone HCl (Oxycodone) 5 mg PO Q4H PRN PRN Reason: Pain (moderate 4-6) Last Admin: 12/30/16 18:33 Dose: 5 mg Oxycodone HCl (Oxycontin) 10 mg PO BID [facility] Last Admin: 12/31/16 08:43 Dose: 10 mg [facility]op[facility] Last Admin: 12/31/16 07:51 Dose: 40 mg Polyethylene Glycol (Miralax) 17 gm PO DAILY PRN PRN Reason: Constipation Senna/Docusate Sodium (Senna Plus) 1 tab PO BEDTIME PRN PRN Reason: Constipation Senna/Docusate Sodium (Senna Plus) 1 tab PO BEDTIME [facility] Last Admin: 12/30/16 23:07 Dose: Not Given Simvastatin (Zocor) 40 mg PO BEDTIME [facility] Last Admin: 12/30/16 23:08 Dose: 40 mg Sodium Chloride (Saline Flush) 10 ml FLUSH ASDIRECTED PRN PRN Reason: Keep Vein Open Last Admin: 12/30/16 09:06 Dose: 10 ml Zolpidem Tartrate (Ambien) 5 mg PO BEDTIME PRN PRN Reason: Sleep Discontinued Medications Albuterol/Ipratropium (Duoneb 3.0-0.5 Mg/3 Ml) 3 ml NEB ONETIME ONE Stop: 12/25/16 09:00 Last Admin: 12/25/16 09:33 Dose: 3 ml Amlodipine Besylate (Norvasc) 5 mg PO DAILY [facility] Last Admin: 12/30/16 09:02 Dose: 5 mg Amlodipine Besylate (Norvasc) 10 mg PO DAILY [facility] Clonidine HCl (Catapres) 0.1 mg PO BID [facility] Last Admin: 12/26/16 11:11 Dose: Not Given Piperacillin Sod/Tazobactam (Sod 3.375 gm/ Sodium Chloride) 100 mls @ 200 mls/ hr IV ONETIME ONE Stop: 12/25/16 12:27 Last Infusion: 12/25/16 13:05 Dose: Infused Azithromycin 500 mg/ Sodium (Chloride) 250 mls @ 250 mls/hr IV Q24H [facility] Last Admin: 12/29/16 14:00 Dose: 250 mls/hr Ceftriaxone Sodium 1 gm/ (Sodium Chloride) 50 mls @ 100 mls/hr IV Q24H [facility] Last Admin: 12/30/16 10:49 Dose: Not Given Potassium Chloride (Klor-Con 10) 40 meq PO ONETIME ONE Stop: 12/26/16 10:35 Last Admin: 12/26/16 11:10 Dose: 40 meq Simvastatin (Zocor) 40 mg PO BEDTIME [facility] Last Admin: 12/29/16 21:37 Dose: 40 mg Simvastatin (Zocor) 20 mg PO BEDTIME [facility] Sodium Chloride (Saline Flush) 10 ml FLUSH ASDIRECTED PRN PRN Reason: Keep Vein Open - Exam General: Reports: Alert, Oriented Neck: Reports: Supple Lungs: Reports: Clear to Auscultation, Normal Respiratory Effort Cardiovascular: Reports: Regular Rate, Regular Rhythm Extremities: Normal Inspection (no changes on left fott but tender to touch), No Pedal Edema Skin: Reports: Warm, Dry Neurological: Reports: No New Focal Deficit Psy/Mental Status: Reports: Alert, Normal Affect, Normal Mood *Q Meaningful Use (DIS) - VTE *Q VTE Criteria *Q: - Stroke *Q Stroke Criteria *Q: - AMI *Q AMI Criteria *Q:
== END 2016-12-31 11:00 | DRG 947 ==
LOC: EEVIPCON 08:37 → DL.ED 08:37 → UNDOADMIN 12:19 → DL.MS 12:19
PROVIDERS: ADMIT Internal Medicine; ATTEND Internal Medicine
DX: R53.1 Weakness (principal); J18.1 Lobar pneumonia, unspecified organism; J44.0 Chronic obstructive pulmonary disease with (acute) lower respiratory infection; Z91.81 History of falling; I25.10 Atherosclerotic heart disease of native coronary artery without angina pectoris; N18.3 Chronic kidney disease, stage 3 (moderate); Z79.82 Long term (current) use of aspirin; F17.220 Nicotine dependence, chewing tobacco, uncomplicated; M54.9 Dorsalgia, unspecified; G89.29 Other chronic pain; M13.872 Other specified arthritis, left ankle and foot; I12.9 Hypertensive chronic kidney disease with stage 1 through stage 4 chronic kidney disease, or unspecified chronic kidney disease; H40.9 Unspecified glaucoma; Z87.891 Personal history of nicotine dependence; R06.02 Shortness of breath
CPT/HCPCS: 36415; 71010; 71250; 73620-LT; 80048; 80053; 81001; 83605; 83880; 84443; 84484; 85025; 87040; 87070; 87077; 87186; 87205; 93005; 93010; 94640; 96374; 97161-GP; 97165-GO; 99284; 99285; A9270-GY; J0456; J0696; J1644; J2543; J7050

== ENCOUNTER 2020-09-20 16:55 | Emergency (ER) | payer MEDICAID, BC ==
[2020-09-20 17:51] VITALS: BP 139/75; PULSE 63
--- NOTE | 2020-09-20 18:22 | CR ---
PROCEDURE INFORMATION: Exam: XR Left Ankle Exam date and time: 09/20/2020 5:54 PM Age: 79 years old Clinical indication: Pain; Ankle; Left; Additional info: Pain, redness TECHNIQUE: Imaging protocol: XR Left ankle. Views: 3 or more views. COMPARISON: CR Foot 2V Lt 12/30/2016 7:57 PM FINDINGS: Bones/joints: The mortise joint space is symmetric. There is no evidence of acute fracture. Soft tissues: There is mild soft tissue swelling. Vasculature: The vasculature demonstrates diffuse moderate atherosclerotic calcification. IMPRESSION: Soft tissue swelling without acute bony abnormality.
--- NOTE | 2020-09-20 18:57 | EDM.PDOC ---
ED HPI GENERAL MEDICAL PROBLEM - General Chief Complaint: Lower Extremity Injury/Pain Stated Complaint: INJURED ANKLE Time Seen by Provider: 09/20/20 18:47 Source of Information: Reports: Patient, RN, RN Notes Reviewed History Limitations: Reports: No Limitations - History of Present Illness INITIAL COMMENTS - FREE TEXT/NARRATIVE: Chaitanya is an 79 y/o male who presents to the ED via personal vehicle with son for complaints of left ankle pain. The patient reports he has been experiencing pain to his left, proximal ankle for several weeks which has progressively worsened in severity to the point that he finds walking difficult. He characterizes the pain as sharp in nature and denies radiation of the pain. He denies recent or history of injury to the left ankle; he has not had any falls. The patient reports he has taken his previously prescribed Oxycontin 10mg q12h and Hydrocodone/Acetaminophen 5/325mg q6h which has provided [id number] relief of pain; the patient states [facility]. Left Ankle Pain Score (Numeric/FACES): 8 - Related Data Allergies Allergy/AdvReac Type Severity Reaction Status Date / Time No Known Allergies Allergy Verified 12/25/16 12:54 Home Meds: Home Meds Acetaminophen/oxyCODONE [Percocet 325-5 MG] 1 tab PO Q6HR PRN 06/06/15 [History] Albuterol Sulfate [Proventil Hfa] 2 puff INH Q6HR PRN 06/06/15 [History] Cimetidine [Tagamet] 400 mg PO BID 06/06/15 [History] Meclizine [Antivert] 12.5 mg PO TID PRN 06/06/15 [History] Simvastatin [Zocor] 40 mg PO BEDTIME 06/06/15 [History] cloNIDine HCL [Catapres] 0.1 mg PO BID 06/06/15 [History] carvediloL [Coreg] 25 mg PO BID #30 tablet 11/16/15 [Rx] Aspirin [Halfprin] 81 mg PO BRK 01/30/16 [History] Docusate Sodium/Sennosides [Senna Plus] 1 tab PO BEDTIME 01/30/16 [History] Isosorbide Mononitrate [Imdur] 120 mg PO DAILY 01/30/16 [History] Acetaminophen [Tylenol] 2 tab PO QID PRN 12/25/16 [History] Dorzolamide HCl/Timolol Maleat [Cosopt Eye Drops] 1 drop EYELF BID 12/25/16 [History] acetaZOLAMIDE [Acetazolamide] 250 mg PO BID 12/25/16 [History] amLODIPine [Norvasc] 5 mg PO DAILY 12/25/16 [History] oxyCODONE ER [OxyCONTIN] 10 mg PO Q12HR 12/25/16 [History] Levofloxacin [Levaquin] 500 mg PO Q24H #7 tablet 12/30/16 [Rx] Nicotine [Habitrol] 14 mg TRDERM DAILY #10 patch 12/30/16 [Rx] Past Medical History HEENT History: Reports: Cataract, Glaucoma, Hard of Hearing Other HEENT History: occasional increase in [place] Cardiovascular History: Reports: Angina, CAD, High Cholesterol, Hypertension, [place], PVD, SOB on Exertion Respiratory History: Reports: COPD, SOB Gastrointestinal History: Reports: Diverticulosis, GERD, Other (See Below) Other Gastrointestinal History: abdominal hernia Genitourinary History: Reports: BPH, Renal Disease Other Genitourinary History: chronic kidney disease, Stage III. Renal insufficiency Musculoskeletal History: Reports: Back Pain, Chronic, Other (See Below) Other Musculoskeletal History: DJD Neurological History: Reports: Other (See Below) Other Neuro History: dementia. Through review of Dr. 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 Psychiatric History: Reports: Anxiety, Dementia Other Psychiatric History: Pt is on pain contract with Amanda Nguyen GNP - Infectious Disease History Infectious Disease History: Reports: Chicken Pox, Measles - Past Surgical History HEENT Surgical History: Reports: Adenoidectomy, Cataract Surgery, Tonsillectomy Cardiovascular Surgical History: Reports: AAA Repair, Carotid Endarterectomy Respiratory Surgical History: Reports: None GI Surgical History: Reports: Appendectomy, Colonoscopy, Hernia, Abdominal Male Surgical History: Reports: None Neurological Surgical History: Reports: Vertebroplasty Other Neurological Surgeries/Procedures: spinal stenosis repair (L3-4 posterior spinal decompression and bilateral foraminotomies) Musculoskeletal Surgical History: Reports: Other (See Below) Other Musculoskeletal Surgeries/Procedures:: back surgery Dermatological Surgical History: Reports: None Social & Family History - Family History Family Medical History: No Pertinent Family History Neurological: Reports: CVA Oncologic: Reports: Colon - Tobacco Use Tobacco Use Status *Q: Never Tobacco User Second Hand Smoke Exposure: No - Caffeine Use Caffeine Use: Reports: Soda - Recreational Drug Use Recreational Drug Use: No - Living Situation & Occupation Living situation: Reports: with Spouse Occupation: Retired Review of Systems - Review of Systems Review Of Systems: Comprehensive ROS is negative, except as noted in HPI. ED EXAM, GENERAL - Physical Exam Exam: See Below Exam Limited By: No Limitations General Appearance: Alert, No Apparent Distress Eye Exam: Bilateral Eye: EOMI, Normal Inspection, PERRL (3mm) Throat/Mouth: Normal Inspection, Normal Oropharynx, Normal Voice, No Airway Compromise Head: Atraumatic, Normocephalic Neck: Normal Inspection, Supple, Non-Tender, Full Range of Motion Respiratory/Chest: Normal Breath Sounds, No Accessory Muscle Use, Chest Non- Tender, Decreased Breath Sounds Cardiovascular: Normal Peripheral Pulses, Regular Rate, Rhythm, No Edema, No Gallop, No Murmur, No Rub, JVD Peripheral Pulses: 1+: Posterior Tibial (L), Posterior Tibial (R), Dorsalis Pedis (L), Dorsalis Pedis (R), 2+: Radial (L), Radial (R) GI/Abdominal: Normal Bowel Sounds, Soft, Non-Tender, No Distention, No Abnormal Bruit, No Mass, Pelvis Stable (Male) Exam: Deferred Rectal (Males) Exam: Deferred Back Exam: Normal Inspection, Full Range of Motion Extremities: Slow Capillary Refill (To bilateral lower extremities), Leg Pain (To left proximal ankle), Limited Range of Motion (To left ankle), Pallor (To bilateral lower extremities), Other (Cooler bilateral lower extremities). No: Joint Swelling, Morro's Sign, Mottled, Redness Neurological: Alert, Oriented, CN II-XII Intact, Normal Cognition, Abnormal Gait (Walker utilized for ambulation; Left limping gait) Psychiatric: Normal Affect, Normal Mood Skin Exam: Dry, Intact, Cool (To bilateral lower extremities). No: Ecchymosis, Erythema, Jaundice, Mottled, Pallor, Petechiae Course - Vital Signs Last Recorded V/S: Last Vital Signs Temp 97.1 F 09/20/20 17:46 Pulse 63 09/20/20 17:46 Resp 16 09/20/20 17:46 BP 139/75 09/20/20 17:46 Pulse Ox 97 09/20/20 17:46 - Radiology Interpretation Free Text/Narrative:: [facility] [place] [facility] Final Radiology Report Call: [phone] assistance Online chat: [email or web address] Name: CHAITANYA MARIA Age: 79Years M Date: 09/20/2020 SSN: -- : [id number] Study: CR ANKLE MIN 3V LT Requesting Physician: Marisa Alvarenga Images: 3 Addl Studies: Provided Clinical History: pain, redness Contrast: Contrast Medium: Contrast Amount: Contrast Method: CONFIDENTIALITY STATEMENT This report is intended only for use by the referring physician, and only in accordance with law. If you received this in error, call [phone]. Page 1 of 1 PROCEDURE INFORMATION: Exam: XR Left Ankle Exam date and time: 09/20/2020 5:54 PM Age: 79 years old Clinical indication: Pain; Ankle; Left; Additional info: Pain, redness TECHNIQUE: Imaging protocol: XR Left ankle. Views: 3 or more views. COMPARISON: CR Foot 2V Lt 12/30/2016 7:57 PM FINDINGS: Bones/joints: The mortise joint space is symmetric. There is no evidence of acute fracture. Soft tissues: There is mild soft tissue swelling. Vasculature: The vasculature demonstrates diffuse moderate atherosclerotic calcification. IMPRESSION: Soft tissue swelling without acute bony abnormality. Thank you for allowing us to participate in the care of your patient. Dictated and Authenticated by: Gus Livingston MD 09/20/2020 6:21 PM Central Time ([place] & [place]) - Re-Assessments/Exams Free Text/Narrative Re-Assessment/Exam: 09/20/20 Given decreased capillary refill, decreased pulse, and cool extremities, patient instructed to following up with primary care provider to schedule ankle brachial index doppler. Patient able to ambulate well during his examination despite his son's concerns. Discussed findings of examination and imaging with patient and son who verbalize understanding and agreement with the plan of care. Departure - Departure Time of Disposition: 19:23 Disposition: Home, Self-Care 01 Condition: Fair Clinical Impression: History of peripheral arterial disease Left ankle pain Qualifiers: Chronicity: acute Qualified Code(s): M25.572 - Pain in left ankle and joints of left foot - Discharge Information *PRESCRIPTION DRUG MONITORING PROGRAM REVIEWED*: Not Applicable *COPY OF PRESCRIPTION DRUG MONITORING REPORT IN PATIENT MAGY: Not Applicable Referrals: PCP,None [Primary Care Provider] - Forms: ED Department Discharge Additional Instructions: 1.) Take additional dose of previously prescribe medication prior to bed. 2.) Follow up with primary care provider tomorrow regarding today's visit; you may require a referral to vascular medicine. Arterial brachial index studies may be warranted. Sepsis Event Note (ED) - Evaluation Sepsis Screening Result: No Definite Risk
== END 2020-09-20 19:45 | disposition home or self-care (01) ==
LOC: DL.ED 16:55
DX: M25.572 Pain in left ankle and joints of left foot (principal); I25.10 Atherosclerotic heart disease of native coronary artery without angina pectoris; E78.00 Pure hypercholesterolemia, unspecified; I25.2 Old myocardial infarction; I12.9 Hypertensive chronic kidney disease with stage 1 through stage 4 chronic kidney disease, or unspecified chronic kidney disease; N18.30 Chronic kidney disease, stage 3 unspecified; J44.9 Chronic obstructive pulmonary disease, unspecified; F03.90 Unspecified dementia, unspecified severity, without behavioral disturbance, psychotic disturbance, mood disturbance, and anxiety; K21.9 Gastro-esophageal reflux disease without esophagitis; Z79.82 Long term (current) use of aspirin; Z79.899 Other long term (current) drug therapy; Z86.79 Personal history of other diseases of the circulatory system
CPT/HCPCS: 73610-LT; 99283